=== PATIENT | female | born 1960 | race Caucasian/White ===

== ENCOUNTER 2023-03-24 14:14 | Outpatient (OUT) | payer OTHER, MEDICAID, SELFPAY ==
[2023-03-24 15:01] LABS: Basophils Absolute Auto 0.1 10^3/uL (0.0-0.1); Basophils Percent Auto 0.7 % (0.2-2.0); Eosinophils Absolute Auto 0.1 10^3/uL (0.0-0.7); Eosinophils Percent Auto 1.5 % (0.9-7.0); Hematocrit 38.9 % (36.0-48.0); Hemoglobin 12.6 g/dL (12.0-16.0); Immature Granulocytes Abs Auto 0.02 10^3/uL (0.00-0.03); Immature Granulocytes Pct Auto 0.3 % (0.0-0.5); Lymphocytes Absolute Auto 2.2 10^3/uL (1.2-3.8); Lymphocytes Percent Auto 28.8 % (20.5-60.0); Mean Corpuscular HGB Conc 32.4 g/dL (29.9-35.2); Mean Corpuscular Hemoglobin 31.5 pg (26.7-34.0); Mean Corpuscular Volume 97.3 fL (81.0-99.0); Mean Platelet Volume 10.7 fL (9.5-13.5); Monocytes Absolute Auto 0.5 10^3/uL (0.3-0.8); Monocytes Percent Auto 7.1 % (1.7-12.0); Neutrophils Absolute Auto 4.7 10^3/uL (1.4-6.5); Neutrophils Percent Auto 61.6 % (43.0-75.0); Platelet Count 176 10^3/uL (150-450); Red Cell Distribution Width 13.2 % (11.0-15.0); White Blood Count 7.6 10^3/uL (4.0-11.0)
[2023-03-24 15:25] LABS: Estimated Average Glucose 146 mg/dL; Glycohemoglobin A1C 6.7 % (4.5-6.2)
[2023-03-24 15:27] LABS: Alanine Aminotransferase 35 U/L (14-59); Albumin Level 3.9 g/dL (3.4-5.0); Alkaline Phosphatase 101 U/L (46-116); Anion Gap 13.9; Aspartate Amino Transferase 43 U/L (15-37); BUN Creatinine Ratio 23.4; Bilirubin Total 1.1 mg/dL (0.2-1.0); Calcium 9.4 mg/dL (8.5-10.1); Carbon Dioxide 27.4 mmol/L (21.0-32.0); Chloride 104 mmol/L (98-107); Chol HDL Ratio 2.2; Cholesterol 168 mg/dL (<=200); Estimated GFR (African America >60 (>=60); Estimated GFR (Non-African Ame >60 (>=60); Free T3 2.36 pg/mL (2.18-3.98); Globulin 3.8 g/dL; Glucose 131 mg/dL (74-106); HDL Cholesterol 76 mg/dL (40-60); Potassium 4.3 mmol/L (3.5-5.1); Sodium 141 mmol/L (136-145); Thyroid Stimulating Hormone 2.812 uIU/mL (0.358-3.740); Total Protein 7.7 g/dL (6.4-8.2); Triglycerides 88 mg/dL (<=150); VLDL CHOLESTEROL 17.6 mg/dL
[2023-03-25 12:12] LABS: Insulin 9.5 uIU/mL (2.6-24.9)
== END 2023-03-24 14:15 | disposition home or self-care (01) ==
LOC: LAB 14:16
PROVIDERS: PCP Family Medicine; Visit Provider Family Medicine
DX: E11.69 Type 2 diabetes mellitus with other specified complication (principal); E78.5 Hyperlipidemia, unspecified; G47.33 Obstructive sleep apnea (adult) (pediatric); Z12.12 Encounter for screening for malignant neoplasm of rectum; D64.9 Anemia, unspecified; E55.9 Vitamin D deficiency, unspecified; I11.0 Hypertensive heart disease with heart failure
CPT/HCPCS: 36415; 80053; 80061; 82306; 83036; 83525; 83540; 83880; 84436; 84443; 84481; 85025

== ENCOUNTER 2023-03-31 09:50 | Outpatient (OUT) | payer OTHER, MEDICAID, SELFPAY ==
--- NOTE | 2023-03-31 11:16 | CA_ITS ---
Patient Name: MEKA ALVES MR#: [id number] : 1960 Exam Date: 03/31/2023 Ordering Doctor: DR BRUNO AYALA . ECHOCARDIOGRAM REPORT PROCEDURE: CA ECHO DOPPLER COMPLETE INDICATIONS: Chest pain COMPARISON: None. DESCRIPTION: COMPLETE ECHOCARDIOGRAM Real-time transthoracic echocardiography with 2D, M-mode, spectral and color flow Doppler performed. QUALITY: Technical quality was limited. LEFT VENTRICLE: Moderate dilatation. Normal left ventricular wall thickness. LV EF: Global left ventricular systolic function is low normal limits; visually estimated ejection fraction is 50%. No obvious wall motion abnormalities. DIASTOLIC: Grade II diastolic dysfunction. ATRIAL SEPTUM: Inadequately seen. LEFT ATRIUM: Mild dilatation. RIGHT ATRIUM: Mild dilatation. RIGHT VENTRICLE: Mild dilatation. Right ventricular systolic function appears reduced. TRICUSPID VALVE: Normal mobility and thickness. Moderate regurgitation. Severe pulmonary hypertension. RVSP 66mmHg MITRAL VALVE: Normal mobility and thickness. No evidence of mitral valve stenosis. Moderate mitral annular calcification. Calcified subvalvular apparatus. Trivial mitral regurgitation. AORTIC VALVE: Normal trileaflet appearance. Moderately calcified aortic valve. Doppler velocity suggest no significant aortic valve stenosis. No aortic regurgitation. AORTIC ROOT: Normal diameter and appearance. PULMONIC VALVE: Normal thickness and mobility. No stenosis. Trivial regurgitation. PERICARDIUM: No evidence of pericardial effusion. IVC: Normal size with no collapse. CONCLUSION: 1. Global left ventricular systolic function is low normal limits; visually estimated ejection fraction is 50% 2. The left ventricle is moderately dilated 3. The right ventricle is mildly dilated with reduced systolic function 4. Biatrial enlargement 5. Grade 2, moderate diastolic dysfunction 6. Moderate tricuspid regurgitation 7. Severely elevated right ventricular systolic pressure; RVSP 66 mmHg Adult Echocardiography Procedure Report Left Ventricle LVEDD (3.7 - 5.6 cm): 5.76 cm LVESD (2.2 - 4.0 cm): 4.00 cm LVIVS thickness (0.6 - 1.2 cm): 0.90 cm LVPW thickness (0.5 - 1.0 cm): 0.79 cm e': 0.08 m/s E - e': 11.85 LVOT Max Gradient: 1.74 mm[Hg] LVOT Area (cm2): 0.66 m/s Peak Velocity (LVOT): 0.66 m/s Mean Velocity (LVOT): 0.50 m/s LVOT Diameter 2.00 cm Left Atrium LA Volume Index (2D A2C): 40.08 ml/m2 Left Atrium Systolic Dimension: 3.67 cm Mitral Valve MV E to A Ratio: 1.39, 1.19 Mitral Valve A-Wave Peak Velocity: 0.71 m/s Mitral Valve E-Wave Peak Velocity: 0.91 m/s Right Ventricle RV Internal Diastolic Dimension: 4.17 cm Aorta AO Root Diam: 2.96 cm Ascending Ao Diam: 2.35 cm Aortic Valve AoV Area (Peak Baron): 1.30 cm2, 1.30 cm2 AoV Area (VTI): 1.49 cm2, 1.40 cm2 Peak Velocity(Antegrade Flow): 1.59 m/s, 1.59 m/s Peak Gradient(Antegrade Flow): 10.12 mm[Hg], 10.12 mm[Hg] Mean Velocity(Antegrade Flow): 1.10 m/s, 1.07 m/s Mean Gradient(Antegrade Flow): 5.45 mm[Hg], 5.21 mm[Hg] Velocity Time Integral: 43.17 cm, 38.35 cm Tricuspid Valve Peak Velocity (Regurgitant Flow): 3.23 m/s, 2.47 m/s, 3.81 m/s Pulmonic Valve Mean Gradient: 2.25 mm[Hg], 2.20 mm[Hg], 2.19 mm[Hg] Mean Velocity: 0.71 m/s, 0.70 m/s, 0.71 m/s Peak Velocity: 0.95 m/s Peak Gradient: 4.11 mm[Hg], 3.48 mm[Hg], 3.22 mm[Hg] Right Atrium Right Atrium Systolic Pressure: 66.64 ml, 66.64 ml Dictated by: Armen Flaherty M.D. on 03/31/2023 at 12:55 Approved by: Armen Flaherty M.D. on 03/31/2023 at 13:03
[2023-03-31 14:14] LABS: Occult Blood Negative
== END 2023-03-31 09:51 | disposition home or self-care (01) ==
LOC: CARD 09:54
PROVIDERS: PCP Family Medicine; Visit Provider Family Medicine
DX: R07.9 Chest pain, unspecified (principal); E11.69 Type 2 diabetes mellitus with other specified complication; E78.5 Hyperlipidemia, unspecified; G47.33 Obstructive sleep apnea (adult) (pediatric); Z12.12 Encounter for screening for malignant neoplasm of rectum; D64.9 Anemia, unspecified; E55.9 Vitamin D deficiency, unspecified; I50.30 Unspecified diastolic (congestive) heart failure; I11.0 Hypertensive heart disease with heart failure
CPT/HCPCS: 93306; G0328

== ENCOUNTER 2023-04-14 09:54 | Outpatient (OUT) | payer OTHER, MEDICAID, SELFPAY ==
--- NOTE | 2023-04-14 09:56 | VEIN_ITS ---
Patient Name: MEKA ALVES MR#: [id number] : 1960 Exam Date: 04/14/2023 Ordering Doctor: DR JOÃO JOSHUA M.D. RADIOLOGY REPORT PROCEDURE: VC EXT VENOUS REFLUX LYLA LMTD COMPARISON: None. INDICATIONS: I83.813 Painful varicose veins of bilat lower extremities TECHNIQUE: Duplex imaging of the lower extremity to assess the deep and superficial venous system for the presence of deep or superficial venous incompetence and to document the location and severity of disease. The study includes evaluation of the great saphenous vein (GSV), anterior accessory saphenous vein (AASV) and small saphenous vein (SSV). Patient scanned in reverse Trendelenburg and standing. FINDINGS: RIGHT LOWER EXTREMITY: Saphenofemoral Junction Reflux: Yes 10.8mm 2.8 sec GSV: Diam (mm) Reflux/ Time (sec) Proximal Thigh 10.0 Yes 2.7 Mid Thigh 7.9 Yes 1.7 Distal Thigh 6.8 Yes 2.3 Prox Calf 5.9 Yes 1.1 Mid Calf Saphenopopliteal Junction Reflux: 5.6mm Yes 1.8 SSV: Proximal Calf 5.7 Yes 2.4 Mid Calf N/A AASV: Not present Proximal Thigh Mid Thigh Distal Thigh Thrombi: No acute or chronic thrombus Compressibility: Normal Flow: Normal Preforator: Dist/med calf 4.5mm with 0s reflux. Tech Note: Incompetent GSV and SSV. Patent varicose vein mid/med calf 5.0mm with 1.1s reflux. Patent varicose vein medial knee 4.2mm with 0.6s reflux. Patent varicose vein mid/med thigh 4.5mm with 1.0s reflux. LEFT LOWER EXTREMITY: Saphenofemoral Junction Reflux: Yes 8.8 mm 3.1 sec GSV: Diam (mm) Reflux/Time (sec) Proximal Thigh 7.0 Yes 2.0 Mid Thigh 6.7 Yes 1.7 Distal Thigh 3.4 Yes 0.5 Prox Calf 5.4 Yes 0.9 Mid Calf 3.3 Saphenopopliteal Junction Relux: 8.0 mm Yes 1.6 SSV: Proximal Calf 7.0 Yes 1.8 Mid Calf N/A AASV: Proximal Thigh Mid Thigh Distal Thigh Thrombi: No acute or chronic thrombus visualized Compressibility: Normal Flow: Normal Director Of Curriculum And Instruction: Tech Note: Patent varicose vein prox/med calf 5.3mm with 1.0s reflux. Patent varicose vein mid/med thigh 6.2mm with 1.6s reflux. Patent varicose vein mid/med calf 5.6mm with 1.8s reflux. CONCLUSION: 1. 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 2. Consultation for endovenous ablation should be considered. Dictated by: Jose Saba M.D. on 04/15/2023 at 14:08 Approved by: Jose Saba M.D. on 04/15/2023 at 14:11
== END 2023-04-14 09:55 | disposition home or self-care (01) ==
PROVIDERS: PCP Family Medicine; Visit Provider Radiology Diagnostic Radiology
DX: R60.0 Localized edema (principal); I83.813 Varicose veins of bilateral lower extremities with pain
CPT/HCPCS: 93970

== ENCOUNTER 2023-04-23 09:58 | Outpatient (RCR) | payer OTHER, MEDICAID, SELFPAY | END 2023-04-24 15:18 | disposition home or self-care (01) | LOC: OT 09:58 | PROVIDERS: PCP Family Medicine; Visit Provider Family Medicine | DX: I89.0 Lymphedema, not elsewhere classified (principal); E11.69 Type 2 diabetes mellitus with other specified complication | CPT/HCPCS: 97166; 97535 ==

== ENCOUNTER 2023-09-03 10:53 | Outpatient (OUT) | payer OTHER, MEDICAID, SELFPAY ==
[2023-09-03 11:27] LABS: Basophils Absolute Auto 0.1 10^3/uL (0.0-0.1); Basophils Percent Auto 0.6 % (0.2-2.0); Eosinophils Absolute Auto 0.1 10^3/uL (0.0-0.7); Eosinophils Percent Auto 1.4 % (0.9-7.0); Hematocrit 38.4 % (36.0-48.0); Hemoglobin 12.6 g/dL (12.0-16.0); Immature Granulocytes Abs Auto 0.03 10^3/uL (0.00-0.03); Immature Granulocytes Pct Auto 0.4 % (0.0-0.5); Lymphocytes Absolute Auto 2.3 10^3/uL (1.2-3.8); Mean Corpuscular HGB Conc 32.8 g/dL (29.9-35.2); Mean Corpuscular Hemoglobin 30.8 pg (26.7-34.0); Mean Corpuscular Volume 93.9 fL (81.0-99.0); Mean Platelet Volume 10.1 fL (9.5-13.5); Monocytes Absolute Auto 0.7 10^3/uL (0.3-0.8); Monocytes Percent Auto 8.5 % (1.7-12.0); Neutrophils Absolute Auto 5.3 10^3/uL (1.4-6.5); Neutrophils Percent Auto 62.1 % (43.0-75.0); Platelet Count 171 10^3/uL (150-450); Red Blood Count 4.09 10^6/uL (4.20-5.40); Red Cell Distribution Width 13.1 % (11.0-15.0); White Blood Count 8.6 10^3/uL (4.0-11.0)
[2023-09-03 12:08] LABS: Alanine Aminotransferase 30 U/L (14-59); Albumin Globulin Ratio 0.9; Albumin Level 3.4 g/dL (3.4-5.0); Alkaline Phosphatase 119 U/L (46-116); Anion Gap 16.3; Aspartate Amino Transferase 24 U/L (15-37); BUN Creatinine Ratio 17.2; Bilirubin Total 0.8 mg/dL (0.2-1.0); Calcium 9.4 mg/dL (8.5-10.1); Carbon Dioxide 26.3 mmol/L (21.0-32.0); Chloride 105 mmol/L (98-107); Chol HDL Ratio 2.2; Cholesterol 163 mg/dL (<=200); Estimated GFR (African America >60 (>=60); Estimated GFR (Non-African Ame 56 (>=60); Free T3 2.72 pg/mL (2.18-3.98); Globulin 3.8 g/dL; Glucose 163 mg/dL (74-106); HDL Cholesterol 74 mg/dL (40-60); Potassium 4.6 mmol/L (3.5-5.1); Sodium 143 mmol/L (136-145); Thyroid Stimulating Hormone 3.946 uIU/mL (0.358-3.740); Total Protein 7.2 g/dL (6.4-8.2); Triglycerides 87 mg/dL (<=150); VLDL CHOLESTEROL 17.4 mg/dL
[2023-09-03 12:15] LABS: Estimated Average Glucose 154 mg/dL
== END 2023-09-03 10:54 | disposition home or self-care (01) ==
LOC: LAB 10:56
PROVIDERS: PCP Family Medicine; Visit Provider Family Medicine
DX: E78.00 Pure hypercholesterolemia, unspecified (principal); E78.5 Hyperlipidemia, unspecified; R73.09 Other abnormal glucose; D64.9 Anemia, unspecified; E55.9 Vitamin D deficiency, unspecified
CPT/HCPCS: 36415; 80053; 80061; 82306; 83036; 83540; 84436; 84443; 84481; 85025

== ENCOUNTER 2023-12-03 11:28 | Outpatient (OUT) | payer OTHER, MEDICAID, SELFPAY ==
--- OUTSIDE RECORDS SUMMARY | 2023-12-03 11:47 | XMS_ITS ---
Patient Summarization (C-CDA 2.1 CCD) Created on: December 03, 2023 MEKA ALVES : 1960 Sex: Female Author Organization Sample organization Care Team Providers Care Livestock Rancher Name Role Phone BRINK, DANDY Unavailable Unavailable BRINK, DANDY Unavailable Unavailable HOY, BRUNO Unavailable Unavailable HOY, BRUNO Unavailable Unavailable BRINK, DANDY Unavailable Unavailable BRINK, DANDY Unavailable Unavailable HOY, BRUNO Unavailable Unavailable HOY, BRUNO Unavailable Unavailable Catia PROVIDERBruno Attending Aure Ayala PROVIDER, Bruno Admitting UnavailBruno Salvador Primary Care Physician [phone] CATIA Sims, DR CARR Attending Unavailable HOY ., DR CARR Consulting Unavailable CATIA ., DR CARR Primary Care Unavailable CATIA ., DR CARR Admitting Unavailable Allergies Allergy Classification Reported Allergen(s) Allergy Type Date of Onset Reaction(s) Facility (2 sources) Adhesive agent; Translations: [ADHESIVES] Propensity to adverse reactions (disorder) 6 AOF [facility] Repository (3 sources) Egg; Translations: [EGGS] Food allergy (disorder) 6 Anaphylaxis (disorder), Weal (disorder) [facility] Repository (2 sources) Sulfonamides (Antibiotic) Drug allergy (disorder) 6 AOF [facility] Repository (1 source) Sulfonamides (Antibiotic) Drug allergy (disorder) 6 AOF [facility] Repository (2 sources) Sulfonamides (Antibiotic); Translations: [sulfa drugs] Propensity to adverse reactions (disorder) [facility] Repository (1 source) Adhesive agent Drug allergy (disorder) [facility] Repository (1 source) egg extract Drug Allergy 6 [facility] Repository Encounters Encounter Date Encounter Type Care Provider Facility Start: 10-14-[address] BRUNO AYALA . Facili ty:[facility]1 Start: 07-01-2022 End: 07-02-2022 ambulatory Bruno Ayala PROVIDER [place]: 07-01-2022 End: 07-01-2022 Patient encounter procedure Bruno Ayala [facility] Start: 12-06-2017 End: 12-07-2017 Patient encounter DANDYMAHNAZ BRINK Facility:[facility] Start: 11-30-2017 End: 12-01-2017 Patient encounter DANDY BRINK Facility:[facility] Medical Equipment Procedure Code Equipment Code Equipment Origin al Text Equipment Identifier Dates 30 Gauge Lancet, See Instructions, 100 EA, 11, Lancets 30 gauge for use with One Touch Verio Meter Test up to TID, [facility]/pharmacy #[id number], Supply, 158, cm, 07/30/20 15:32:00 EDT, Height/Length Dosing, 136.6, kg, 07/30/20 15:32:00 EDT, Weight Dosing Start: 07-31-2020 1 madhav, Topical, TID, 30 gram, Refill(s) 0 Start: 11-24-2015 1 madhav, Topical, BID, 30 gram, Refill(s) 0 Start: 11-24-2015 One Touch Verio reflect test Strips, See Instructions, 100 EA, 12, One Touch Verio reflect test Strips DX E.11.9 Test blood sugar up to TID, [facility], Supply, 158, cm, 11/04/20 13:45:00 EDT, Height/Length Dosing, 136.1, kg,... Start: 08-18-2021 Immunizations Immunization Date Immunization Notes Care Provider Markie greer 08-21-2020 tetanus toxoid, redu ita diphtheria toxoid, and acellular pertussis vaccine, adsorbed Bruno Ayala [facility] Primary [facility] Medications Current Medications Medication Drug Class(es) Dates Sig (Normalized) Sig (Original) aspirin 81 mg delayed release oral tablet (1 source) Platelet Aggregation Inhibitor, Nonsteroidal Anti-inflammatory Drug Start: 07-30-2020 take 1 tablet by mouth once daily aspirin 81 mg Oral EC Tab 81 mg = 1 tab(s), Oral, Daily, # 90 tab(s), Refills(s) 0 Start Date: 07/30/20 Status: Ordered carvedilol 12.5 mg oral tablet (1 source) alpha-Adrenergic Asha, beta-Adrenergic Asha Start: 09-12-2021 take 1 tablet by mouth twice daily Coreg 12.5 mg Tab 12.5 mg = 1 tab(s), Oral, BID, # 180 tab(s), Refills(s) 1, Pharmacy: [facility], 158, cm, 11/04/20 13:45:00 EDT, Height/Length Dosing, 136.1, kg, 11/04/20 13:45:00 EDT, Weight Dosing Start Date: 09/12/21 Status: Ordered cpap supplies (1 source) Start: 12-27-2020 cpap supplies cpap supplies, See Instructions, 1 EA, 5, cpap supplies, Supply Start Date: 12/27/20 Status: Ordered fenofibrate 145 mg oral tablet (1 source) Peroxisome Proliferator Receptor alpha Agonist Start: 08-15-2020 take 1 tablet by mouth once daily fenofibrate 145 mg Tab 145 mg = 1 tab(s), Oral, Daily, # 90 tab(s), Refills(s) 1, Pharmacy: [facility], 158, cm, 07/30/20 15:32:00 EDT, Height/Length Dosing, 136.6, kg, 07/30/20 15:32:00 EDT, Weight Dosing Start Date: 08/15/20 Status: Ordered furosemide 20 mg oral tablet (1 source) Loop Diuretic Start: 10-28-2012 take 1 tablet by mouth once daily Lasix 20 mg Tab 20 mg = 1 tab(s), Oral, Daily, Refills(s) 0 Start Date: 10/28/12 Status: Ordered glimepiride 4 mg oral tablet (1 source) Sulfonylurea Start: 03-14-2021 take 2 mg by mouth once daily glimepiride 4 mg Tab 2 mg = 0.5 tab(s), Oral, Daily, # 45 tab(s), Refills(s) 1, Pharmacy: [facility], 158, cm, 11/04/20 13:45:00 EDT, Height/Length Dosing, 136.1, kg, 11/04/20 13:45:00 EDT, Weight Dosing Start Date: 03/14/21 Status: Ordered metFORMIN hydrochloride 1000 mg oral tablet (1 source) Biguanide Start: 09-12-2021 take 1 tablet by mouth twice daily metformin 1000 mg oral tablet 1,000 mg = 1 tab(s), Oral, BID, # 180 tab(s), Refills(s) 1, Pharmacy: [facility], 158, cm, 11/04/20 13:45:00 EDT, Height/Length Dosing, 136.1, kg, 11/04/20 13:45:00 EDT, Weight Dosing Start Date: 09/12/21 Status: Ordered [facility] [place] (1 source) Start: 07-30-2020 Misc DME Prescription Start Date: 07/30/20 Status: Ordered Mometasone (1 source) Corticosteroid Start: 11-24-2015 mometasone topical 0.1% cream Refill(s) 0 Start Date: 11/24/15 Status: Ordered One Touch Meter Verio Reflect Meter (1 source) Start: 07-31-2020 One Touch Meter Verio Reflect Meter One Touch Meter Verio Reflect Meter, See Instructions, 1 EA, 0, One touch Reflect meter DX E11.9 Test blood sugar up to TID, [facility]/pharmacy #[id number], Supply, 158, cm, 07/30/20 15:32:00 EDT, Height/Length Dosing, 136.6, kg, 07/30/20 15:32:00 EDT, Weight... Start Date: 07/31/20 Status: Ordered simvastatin 20 mg oral tablet (1 source) HMG-CoA Reductase Inhibitor Start: 07-30-2020 take 1 tablet by mouth once daily at bedtime simvastatin 20 mg Tab 20 mg = 1 tab(s), Oral, Once a day (at bedtime), # 30 tab(s), Refills(s) 0 Start Date: 07/30/20 Status: Ordered SITagliptin 100 mg oral tablet (1 source) Dipeptidyl Peptidase 4 Inhibitor Start: 07-30-2020 take 1 tablet by mouth once daily Januvia 100 mg Tab 100 mg = 1 tab(s), Oral, Daily, # 30 tab(s), Refills(s) 0 Start Date: 07/30/20 Status: Ordered Symbicort 80 mcg-4.5 mcg/inh Aerosol (1 source) Start: 10-28-2012 Symbicort 80 mcg-4.5 mcg/inh Aerosol Refill(s) 0 Start Date: 10/28/12 Status: Ordered Vitamin D 1000 intl units Tab (1 source) Start: 07-30-2020 Vitamin D 1000 intl units Tab 1,000 International_Uni t = 1 tab(s), Oral, Daily, 5000 units, # 30 tab(s), Refills(s) 0 Start Date: 07/30/20 Status: Ordered Voltaren 50mg Tab-DR (1 source) Start: 07-30-2020 Voltaren 50mg Tab-DR Oral, Refills(s) 0 Start Date: 07/30/20 Status: Ordered warfarin sodium 5 mg oral tablet (1 source) Vitamin K Antagonist Start: 09-12-2021 take 1 tablet by mouth once daily Jantoven 5 mg oral tablet 5 mg = 1 tab(s), Oral, Daily, # 90 tab(s), Refills(s) 1, Pharmacy: [facility], 158, cm, 11/04/20 13:45:00 EDT, Height/Length Dosing, 136.1, kg, 11/04/20 13:45:00 EDT, Weight Dosing Start Date: 09/12/21 Status: Ordered Completed/Discontinued Medications Medication Drug Class(es) Dates Sig (Normalized) Sig (Original) Diabetic shoes (1 source) Start: 07-30-2020 Diabetic shoes Diabetic shoes, See Instructions, 2 EA, 0, Diabetic Shoes DX E11.9, Supply Start Date: 07/30/20 Status: Ordered Payers Date Payer Category Payer Medicaid [id number] 2022 Medicare [id number] 2020 Unknown [id number] 1960 Unknown [id number] 1960 Unknown [id number] Medicare [id number] Problems Problem Classification Problem Date Documented Da te Episodic/Chronic Abdominal hernia (1 source) Irreducible umbilical hernia 07-28-2013 Episodic Asthma (1 source) Mild persistent asthma 11-04-2020 Chronic Cardiac dysrhythmias (1 source) Bradycardia, unspecified; Translations: [BRADYCARDIA, UNSPECIFIED] Onset: 8 Chronic Chronic obstructive pulmonary disease and bronchiectasis (1 source) Chronic obstructive pulmonary disease, unspecified; Translations: [CHRONIC OBSTRUCTIVE PULMONARY DISEASE, UNSPECIFIED] Onset: 8 Chronic Coronary atherosclerosis and other heart disease (4 sources) Atherosclerotic heart disease of [place] coronary artery without angina pectoris; Translations: [ATHSCL HEART DISEASE OF [place] CORONARY ARTERY W/O ANG PCTRS] Onset: 8 Chronic Diabetes mellitus with complications (1 source) Hyperglycemia due to type 2 diabetes mellitus 07-30-2020 Chronic Diabetes mellitus without complication (1 source) Type 2 diabetes mellitus without complications; Translations: [TYPE 2 DIABETES MELLITUS WITHOUT COMPLICATIONS] Onset: 8 Chronic Essential hypertension (1 source) Hypertensive disorder 11-04-2020 Chronic Headache; including migraine (1 source) Headache 07-30-2020 Episodic Nonspecific chest pain (2 sources) Chest pain, unspecified; Translations: [Chest pain] Onset: 8 07-30-2020 Episodic Other aftercare (1 source) intermediate teacher (current) use of anticoagulants; Translations: [MANAGER RESORT (CURRENT) USE OF ANTICOAGULANTS] Onset: 8 Episodic Other circulatory disease (1 source) 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 Chronic Other liver diseases (1 source) Aspartate aminotransferase serum level raised 11-04-2020 Episodic Other liver diseases (1 source) Elevated liver enzymes level 11-04-2020 Episodic Other lower respiratory disease (1 source) Pulmonary edema 07-30-2020 Chronic Other lower respiratory disease (1 source) H/O: respiratory disease 07-30-2020 Episodic Other nutritional; endocrine; and metabolic disorders (1 source) Obesity, unspecified; Translations: [OBESITY, UNSPECIFIED] Onset: 8 Chronic Other nutritional; endocrine; and metabolic disorders (1 source) Body mass index 40+ - severely obese 07-30-2020 Chronic Other nutritional; endocrine; and metabolic disorders (1 source) Morbid obesity 07-30-2020 Chronic Phlebitis; thrombophlebitis and thromboembolism (2 sources) Personal history of other venous thrombosis and embolism; Translations: [Deep venous thrombosis] Onset: 8 12-08-2011 Episodic Pneumonia (except that caused by tuberculosis or sexually transmitted disease) (1 source) Pneumonia 07-28-2013 Episodic Pulmonary heart disease (1 source) Pulmonary embolism 07-28-2013 Episodic Residual codes; unclassified (1 source) Edema of lower extremity 07-30-2020 Episodic Respiratory failure; insufficiency; arrest (1 source) Dependence on supplemental oxygen; Translations: [DEPENDENCE ON SUPPLEMENTAL OXYGEN] Onset: 8 Chronic Unclassified (2 sources) Body mass index (BMI) 50-59.9 , adult; Translations: [Obstructive sleep apnea (adult) (pediatric)] Onset: 8 Chronic Unclassified (4 sources) Abnormal result of other cardiovascular function study; Translations: [ABNORMAL RESULT OF OTHER CARDIOVASCULAR FUNCTION STUDY] Onset: 8 Episodic Unclassified (1 source) Procedure and treatment not carried out for other reasons; Translations: [PROCEDURE AND TREATMENT NOT CARRIED OUT FOR OTHER REASONS] Onset: 8 Episodic Unclassified (1 source) intermediate (current) use of oral hypoglycemic drugs; Translations: [MANAGER RESORT (CURRENT) USE OF ORAL HYPOGLYCEMIC DRUGS] Onset: 8 Unclassified (2 sources) Unknown / UNK(Unknown) Onset: 8 Unclassified (2 sources) Patient encounter status 07-30-2020 Procedures Date Procedure Procedure Detail Performing Clinician Start: 01-16-2012 left needle localize d breast biopsy, x2 Bruno FK Biotecnologiay Start: 05-09-2010 [employer] 1 Bruno Ho y Comment on above: permanent vena cava filter Gilbert filterbarry evice (physical object) Bruno Hoy Hernia of abdominal cavity (disorder) Bruno Hoy Hysterectomy Bruno Hoy Ligation of fallopian tube D ouglas Hoy Tonsillectomy Bruno Hoy Results Test Name Value Interpretation Reference Range Facility CBC AUTO DIFFon 10-14-2022 BASO # 0.0 103/ul Normal 0.0-0.1 [facility] Comment on above: Performed By: #### CBC #### [facility] [address] [address] [address] Grace Vences Basophils/100 WBC (Bld) 0.6 % Normal 0.2-2.0 [facility] Comment on above: Performed By: #### CBC #### [facility] [address] [address] [address] Grace Vences EO # 0.1 103/ul Normal 0.0-0.7 [facility] Comment on above: Performed By: #### CBC #### [facility] [address] [address] [address] Grace Vences Eosinophils/100 WBC (Bld) 1.1 % Normal 0.9-7.0 [facility] Comment on above: Performed By: #### CBC #### [facility] [address] [place] [address] Dr. Grace Vences Erythrocyte distribution width (RBC) [Ratio] 13.1 % Normal 11.0-15.0 [facility] Comment on above: Performed By: #### CBC #### [facility] [address] [address] [address] Grace Vences Hematocrit (Bld) [Volume fraction] 40.7 % Normal 36.0-48.0 [facility] Comment on above: Performed By: #### CBC #### [facility] [address] [place] [address] Dr. Grace Vences Hemoglobin (Bld) [Mass/Vol] 13.5 g/dL Normal 12.0-16.0 [facility] Comment on above: Performed By: #### CBC #### [facility] [address] [address] [address] Grace Vences IG # 0.03 10e3/ul Normal 0.00-0.03 [facility] Comment on above: Performed By: #### CBC #### [facility] [address] [address] [address] Grace Vences IG % 0.4 % Normal 0.0-0.5 [facility] Comment on above: Performed By: #### CBC #### [facility] [address] [place] [address] Dr. Grace Vences LYMPH # 2.2 103/ul Normal 1.2-3.8 [facility] Comment on above: Performed By: #### CBC #### [facility] [address] [place] [address] Dr. Grace Vences Lymphocytes/100 WBC (Bld) 31.0 % Normal 20.5-60.0 [facility] Comment on above: Performed By: #### CBC #### [facility] [address] [place] [address] Dr. Grace eVnces MANUAL DIFF REQ NO Normal [facility] Comment on above: Performed By: #### CBC #### [facility] [address] [place] [address] Dr. Grace Vences MCH (RBC) [Entitic mass] 31.6 pg Normal 26.7-34.0 [facility] Comment on above: Performed By: #### CBC #### [facility] [address] [place] [address] Dr. Grace Vences MCHC (RBC) [Mass/Vol] 33.2 g/dL Normal 29.9-35.2 [facility] Comment on above: Performed By: #### CBC #### [facility] [address] [place] [address] Dr. Grace Vences MCV (RBC) [Entitic vol] 95.3 fL Normal 81.0-99.0 [facility] Comment on above: Performed By: #### CBC #### [facility] [address] [place] [address] Dr. Grace Vences MONO # 0.4 103/ul Normal 0.3-0.8 [facility] Comment on above: Performed By: #### CBC #### [facility] [address] [place] [address] Dr. Grace Vences Monocytes/100 WBC (Bld) 6.1 % Normal 1.7-12.0 [facility] Comment on above: Performed By: #### CBC #### [facility] [address] [address] [address] Grace Vences NEUT # 4.3 103/ul Normal 1.4-6.5 [facility] Comment on above: Performed By: #### CBC #### [facility] [address] [place] [address] Dr. Grace Vences Neutrophils/100 WBC (Bld) 60.8 % Normal 43.0-75.0 [facility] Comment on above: Performed By: #### CBC #### [facility] [address] [place] [address] Dr. Grace Vences Platelet mean volume (Bld) [Entitic vol] 10.5 fL Normal 9.5-13.5 [facility] Comment on above: Performed By: #### CBC #### [facility] [address] [place] [address] Dr. Grace Vences PLT 186 103/ul Normal 150-450 [facility] Comment on above: Performed By: #### CBC #### [facility] [address] [place] [address] Dr. Grace Vences RBC 4.27 106/ul Normal 4.20-5.40 [facility] Comment on above: Performed By: #### CBC #### [facility] [address] [place] [address] Dr. Grace Vences WBC 7.1 103/ul Normal 4.0-11.0 [facility] Comment on above: Performed By: #### CBC #### [facility] [address] [place] [address] Dr. Grace Vences FREE THYROXINE INDEX T7on FTI 2.75 Normal 1.30-4.50 [facility] Comment on above: Performed By: #### TSH, LIPID, CMP, T7 # ### [facility] [address] [place] [address] Dr. Grace Vences T3U 34.0 % Normal 30.0-39.0 [facility] Comment on above: Performed By: #### TSH, LIPID, CMP, T7 # ### [facility] [address] [place] [address] Dr. Grace Vences T4 [Mass/Vol] 8.10 ug/dL Normal 4.80-13.90 [facility] Comment on above: Performed By: #### TSH, LIPID, CMP, T7 # ### [facility] [address] [address] [address] Grace Vences GLYCOHEMOGLOBIN A1Con 2022 ADA RECOMMENDATION SEE BELOW Normal [facility] Comment on above: Result Comment: ADA RECOMMENDED LIMIT 4. 0 - 6.0 ADA THERAPEUTIC TARGET < 7.0 ACTION SUGGESTED > 7.0 Performed By: #### A 1C #### [facility] [address] [address] [address] Grace Vences Glucose [Mass/Vol] 301 mg/dL Normal [facility] Comment on above: Performed By: #### A1C #### [facility] [address] [place] [address] Dr. Grace Vences HbA1c (Bld) [Mass fraction] 12.1 % Critically high 4.5-6.2 [facility] Comment on above: Performed By: #### A1C #### [facility] [address] [place] [address] Dr. Grace Vences LIPID PROFILEon 10-14-2022 CHOL-HDL RATIO NORM SEE BELOW Normal [facility] Comment on above: Result Comment: 3.3 - 4.4 LOW RISK 4.4 - 7.1 AVERAGE RISK 7.1 - 11.0 MODERATE RISK >11.0 HIGH RISK Performed By: #### T SH, LIPID, CMP, T7 #### [facility] [address] [address] [address] Grace Vences Cholesterol [Mass/Vol] 149 mg/dL Normal <=200 [facility] Comment on above: Performed By: #### TSH, LIPID, CMP, T7 # ### [facility] [address] [address] [address] Grace Vences Cholesterol in HDL [Mass/Vol] 63 mg/dL Critically high 40-60 [facility] Comment on above: Performed By: #### TSH, LIPID, CMP, T7 # ### [facility] [address] [address] [address] Grace Vences Cholesterol in LDL [Mass/Vol] 59.6 mg/dL Normal [facility] Comment on above: Performed By: #### TSH, LIPID, CMP, T7 # ### [facility] [address] [address] [address] Grace Vences Cholesterol.tota l/Cholesterol in HDL [Mass ratio] 2.4 {ratio} Normal [facility] Comment on above: Performed By: #### TSH, LIPID, CMP, T7 # ### [facility] [address] [address] [address] Grace Vences HDL NORMAL > or = 60 mg/dl - LO W CARDIOVASCULAR RISK <40 mg/dl - HIGH CARDIOVASCULAR RISK Normal [facility] Comment on above: Performed By: #### TSH, LIPID, CMP, T7 # ### [facility] [address] [address] [address] Grace Vences LDL CALC NORMAL SEE BELOW Normal [facility] Comment on above: Result Comment: <100 mg/dl OPTIMAL 100 - 129 mg/dl NEAR OR ABOVE OPTIMAL 130 - 159 mg/dl BORDERLINE HIGH 160 - 189 mg/dl HIGH >190 mg/dl VERY HIGH Performed By: #### T SH, LIPID, CMP, T7 #### [facility] [address] [address] [address] Grace Vences Triglyceride [Mass/Vol] 132 mg/dL Normal <=150 [facility] Comment on above: Performed By: #### TSH, LIPID, CMP, T7 # ### [facility] [address] [address] [address] Grace Vences VLDL CALC 26.4 mg/dL Normal [facility] Comment on above: Performed By: #### TSH, LIPID, CMP, T7 # ### [facility] [address] [address] [address] Grace Vences PROF 14(COMP METB)on 023 Albumin [Mass/Vol] 3.4 g/dL Normal 3.4-5.0 [facility] Comment on above: Performed By: #### TSH, LIPID, CMP, T7 # ### [facility] [address] [place] [address] Dr. Grace Vences Albumin/Globulin [Mass ratio] 0.9 {ratio} Normal [facility] Comment on above: Performed By: #### TSH, LIPID, CMP, T7 # ### [facility] [address] [address] [address] Grace Vences ALP [Catalytic activity/Vol] 109 U/L Normal 46-116 [facility] Comment on above: Performed By: #### TSH, LIPID, CMP, T7 # ### [facility] [address] [place] [address] Dr. Grace Vences ALT [Catalytic activity/Vol] 64 U/L Critically high 14-59 [facility] Comment on above: Performed By: #### TSH, LIPID, CMP, T7 # ### [facility] [address] [place] [address] Dr. Grace Vences Anion gap [Moles/Vol] 14.8 mmol/L Normal [facility] Comment on above: Performed By: #### TSH, LIPID, CMP, T7 # ### [facility] [address] [place] [address] Dr. Grace Vences AST [Catalytic activity/Vol] 58 U/L Critically high 15-37 [facility] Comment on above: Performed By: #### TSH, LIPID, CMP, T7 # ### [facility] [address] [place] [address] Dr. Grace Vences Bilirubin [Mass/Vol] 1.0 mg/dL Normal 0.2-1.0 [facility] Comment on above: Performed By: #### TSH, LIPID, CMP, T7 # ### [facility] [address] [place] [address] Dr. Grace Vences Calcium [Mass/Vol] 9.2 mg/dL Normal 8.5-10.1 [facility] Comment on above: Performed By: #### TSH, LIPID, CMP, T7 # ### [facility] [address] [place] [address] Dr. Grace Vences Chloride [Moles/Vol] 102 mmol/L Normal 98-107 [facility] Comment on above: Performed By: #### TSH, LIPID, CMP, T7 # ### [facility] [address] [address] [address] Grace Vences CO2 [Moles/Vol] 27.4 mmol/L Normal 21.0-32.0 [facility] Comment on above: Performed By: #### TSH, LIPID, CMP, T7 # ### [facility] [address] [address] [address] Grace Vences Creatinine [Mass/Vol] 0.86 mg/dL Normal 0.55-1.02 [facility] Comment on above: Performed By: #### TSH, LIPID, CMP, T7 # ### [facility] [address] [address] [address] Grace Vences EGFR-AF [place]UR[place] >60 Normal >=60 [facility] Comment on above: Performed By: #### TSH, LIPID, CMP, T7 # ### [facility] [address] [address] [address] Grace Vences EGFR-NON AF [place] >60 Normal >=60 [facility] Comment on above: Performed By: #### TSH, LIPID, CMP, T7 # ### [facility] [address] [address] [address] Grace Vences Globulin (S) [Mass/Vol] 3.7 g/dL Normal [facility] Comment on above: Performed By: #### TSH, LIPID, CMP, T7 # ### [facility] [address] [address] [address] Grace Vences Glucose [Mass/Vol] 321 mg/dL Critically high 74-106 [facility] Comment on above: Performed By: #### TSH, LIPID, CMP, T7 # ### [facility] [address] [address] [address] Grace Vences Potassium [Moles/Vol] 4.2 mmol/L Normal 3.5-5.1 [facility] Comment on above: Performed By: #### TSH, LIPID, CMP, T7 # ### [facility] [address] [address] [address] Grace Vences Protein [Mass/Vol] 7.1 g/dL Normal 6.4-8.2 [facility] Comment on above: Performed By: #### TSH, LIPID, CMP, T7 # ### [facility] [address] [address] [address] Grace Vences Sodium [Moles/Vol] 140 mmol/L Normal 136-145 [facility] Comment on above: Performed By: #### TSH, LIPID, CMP, T7 # ### [facility] [address] [address] [address] Grace Vences Urea nitrogen [Mass/Vol] 9.0 mg/dL Normal 7.0-18.0 [facility] Comment on above: Performed By: #### TSH, LIPID, CMP, T7 # ### [facility] [address] [address] [address] Grace Vences Urea nitrogen/Creatin ine [Mass ratio] 10.5 mg/mg Normal [facility] Comment on above: Performed By: #### TSH, LIPID, CMP, T7 # ### [facility] [address] [place] [address] Dr. Grace Vences TSHon 10-14-2022 TSH 1.756 uIU/mL Normal 0.358-3.74 0 [facility] Comment on above: Performed By: #### TSH, LIPID, CMP, T7 # ### [facility] [address] [place] [address] Dr. Grace Vences Consent for Treatmenton 06-17 Consent for Treatment [id number]:127 Normal [facility] Physician Orderon 07-01-2022 Physician Order [id number]:127 Normal [facility] Retail - Clinical Noteon Retail - Clinical Note [id number]:127 Normal [facility] Retail - Clinical Noteon Retail - Clinical Note [id number]:127 Normal [facility] Provider Note - ED v2on Provider Note - ED v2 Provider Note - ED v2: Chart Review: HISTORY OF PRESENTING ILLNESS MEKA is a 59 year old Female and was seen by me at 21-Aug-2020 14:02 for a chief complaint of wound puncture. Other complaints include: left index finger puncture wound/abrasion from fishing hook x today, not actively bleeding, no foreign object retained, cleansed by patient facilities engineer; pt unsure of last tetanus immunization. Triage Information: Most recent Vital Sign Value Date PAST MEDICAL HISTORY ATTESTATION: I have reviewed and confirmed nurse's/medic's notes for patient's medications, allergies, and medical, surgical, family and social history ALLERGIES/INTOLERANCES: Allergy Allergen: sulfa drugs Type: Drug Category Reaction: Unknown Intolerance Allergen: Eggs Type: Food Reaction: Diarrhea HEALTH HISTORY: No documented data. OUTPATIENT MEDICATIONS: Home Medications Review Status for Reconciliation: Complete Med Status: Patient Currently Takes Medications Drug Name: aspirin 81 mg oral tablet Instructions: 1 tab(s) orally once a day Drug Name: fenofibrate 145 mg oral tablet Instructions: 1 tab(s) orally once a day Drug Name: Vitamin D3 2000 intl units oral capsule Instructions: 1 cap(s) orally once a day Drug Name: furosemide 20 mg oral tablet Instructions: 1 tab(s) orally once a day Drug Name: warfarin 5 mg oral tablet Instructions: 1 tab(s) orally once a day Drug Name: Jardiance 10 mg oral tablet Instructions: 1 tab(s) orally once a day (in the morning) Drug Name: carvedilol 12.5 mg oral tablet Instructions: 1 tab(s) orally 2 times a day Drug Name: metFORMIN 1000 mg oral tablet Instructions: 1 tab(s) orally 2 times a day Drug Name: Symbicort 80 mcg-4.5 mcg/inh inhalation aerosol Instructions: 2 puff(s) inhaled 2 times a day Drug Name: glimepiride Instructions: 0.5 tab(s) orally once a day Drug Name: Januvia 100 mg oral tablet Instructions: 1 tab(s) orally once a day Drug Name: tetanus-diphtheria toxoids (Td) adult/adolescent 2 units-2 units/0.5 mL intramuscular suspension Instructions: 0.5 milliliter(s) intramuscularly SIGNIFICANT EVENTS: Other Description:NON-SMOKER Past Medical History Description:TYPE 2 DIABETIC Description:COPD Past Surgical History Description:NO SURGERIES THIS YEAR REVIEW OF SYSTEMS CONSTITUTIONAL: Negative for: chills and fever INTEGUMENTARY: ( puncture wound to left index finger) PHYSICAL EXAM CONSTITUTIONAL: Well appearing, well nourished, awake, alert, oriented to person, place, time/situation and in no apparent distress. EYES: Clear bilaterally, pupils equal, round and reactive to light. NEUROLOGICAL: Alert and oriented, no focal deficits, no motor or sensory deficits. SKIN: Skin normal color for race, warm, dry. Superficial Puncture wound/ abrasion to left index finger without erythema, edema or active bleeding. HEME/LYMPH: No adenopathy or splenomegaly. No cervical, supraclavicular or inguinal lymphadenopathy. MEDICAL DECISION MAKING/ED COURSE MDM/ED COURSE: Pt to go to pharmacy for tetanus vaccination. Monitor for signs and symptoms of infection of wound, continue to cleanse with warm soap and water PRN, may apply DSD for comfort/protection. Pt verbalizes understanding and agrees with plan. CLINICAL IMPRESSION Diagnosis/Annotation: ED Dx Name:Puncture wound of finger of left hand Code:S61.239A Disposition: discharged Type: home ATTESTATION CRITICAL CARE TIME Is this a critically ill patient: no Electronic Signatures: Ld Jose (SIGHT MOUNTER-DUMPCART DRIVER) (Signed 21-Aug-2020 14:20) Authored: HPI, PMH, ROS, PE, MDM/ED Course, Clinical Impression, Attestation, Chart Review, Scores Last Updated: 21-Aug-2020 14:20 by Ld Jose (SIGHT MOUNTER-DUMPCART DRIVER) [facility] Cardiovascular Lab Reporton 12-07-2017 Cardiovascular Lab Report [facility] Patient Name: [facility] MR #: [id number] Physician: Dandy Brink,Department of M.D.Medicine Service Date: 12/06/2017Division of Birthdate: 1960Cardiology Room #: 0CAdult CardiovascularServic[address] [address] [facility] Cardiovascular Laboratory ReportCLINICAL PRESENTATION: The patient is a 57-year-old female with pastmedical history significant for mild coronary artery disease, COPD, priorDVT, HALEY, obesity, and type 2 diabetes mellitus. She has been having chestpain recently. She was evaluated by my colleague, Dr. Melendez. She had astress test, which was abnormal with anterior ischemia. She is referredfor cardiac catheterization.FINAL IMPRESSION:1. Mild coronary artery disease, diffuse luminal irregularities, but no significant stenosis identified.PLAN:1. Medical therapy for CAD.2. Reassurance regarding chest pain. She may have non-cardiac chest pain or possibly microvascular angina, however, no severe coronary stenosis was identified.3. Outpatient follow-up with Dr. Melendez and Dr. Ayala4. Coumadin was held for this procedure. We instructed the patient to resume coumadin tonight.PROCEDURES: Coronary angiogram, conscious sedation, 21 minutes.INDICATION: Chest pain, abnormal cardiac stress test.DESCRIPTION OF PROCEDURE: The patient was brought to cardiaccatheterization lab in a fasting state. Informed written consent wasobtained. She was prepped and draped in the usual sterile fashion over theright wrist. Time-out was performed. She was given Versed and fentanyl forsedation. 1% lidocaine was infiltrated over the right radial artery. A6-[place] Terumo Glidesheath slender was placed in the right radial artery.All catheter exchanges were made over the Magic Torque guidewire. A5-[place] JL3.5 was used to engage the left main coronary artery. A5-[place] JR5 was used to engage the right coronary artery. Coronaryangiograms performed in multiple orthogonal views using hand injection ofcontrast.At this point, the procedure was completed. All catheters and wires wereremoved from the body. The radial sheath was removed. A TR band wasapplied to obtain hemostasis. There were no apparent complications.TOTAL CONTRAST: 25 mL.TOTAL CONSCIOUS SEDATION TIME: 21 minutes.TOTAL FLUOROSCOPY TIME: 3 minutes and 0.5 Gy.FINDINGS: Hemodynamics:AO 112/60 (MAP 82).CORONARY ANGIOGRAM:1. Left main coronary artery: Patent.2. Left anterior descending coronary artery: The LAD is patent and has luminal irregularities.3. Left circumflex coronary artery: Circumflex is patent and has luminal irregularities.4. Right coronary artery: The RCA is patent and is dominant. The RCA has luminal irregularities.Electronically Signed by:Dandy Brink M.D. 12/07/2017 08:37 A Dandy Brink M.D.Date Dict: 12/06/2017/11:47 Jose/Dandy Brink M.D.Date Trans: 12/07/2017 01:40 [id number]: Bruno Ayala M.D. [address] [address] Jeovanny Melendez M.D. [facility] [facility] [address] [place] [facility] Social History Date Type Detail Facility Start: 11-04-2020 Tobacco smoking status Never s moked tobacco (finding) [facility] Sex Assigned At Female [facility] Evaluation + Plan note 08-04-2021 Laboratory Note Date & Type Note Facility 08-04-2021 Evaluation + Plan note Future Scheduled [id number] 08/04/21 [facility] Hospital course Narrative Note Date & Type Note Facility Hospital course Narrative No data available for this section [facility] Hospital Discharge instructions Note Date & Type Note Facility Hospital Discharge instructions No data available for this section [facility] Progress note Note Date & Type Note Facility Progress note No data available for this section [facility] Summary Purpose Family History No Family History Records FoundNo Family History Records FoundNo Family History Records FoundNo Family History Records Found Advance Directives No Advanced Directives Records FoundNo Advanced Directives Records FoundNo Advanced Directives Records FoundNo Advanced Directives Records Found Additional Source Comments INFORMATION SOURCE (unrecogn ized section and content) DATE CREATED AUTHOR 12/09/2017 [facility] DATE CREATED AUTHOR AUTHOR'S ORGANIZ ATION 08/24/2020 [facility] DATE CREATED AUTHOR AUTHOR'S ORGANIZ ATION 07/02/2022 [facility] DATE CREATED AUTHOR AUTHOR'S ORGANIZ ATION 10/23/2022 [facility] Patient Care team informatio n (unrecognized section and content) Personnel Name: Bruno Ayala MD Address: Address: [address] [place] [id number] FOR RECORDS PERTAINING TO PATIENTS WHO ARE OR HAVE BEEN ENROLLED IN A CHEMICAL DEPENDENCY/SUBSTANCEABUSE PROGRAM, SOME INFORMATION MAY BE OMITTED. This clinical summary was aggregated from multiple sources. Caution should be exercised in using it in the provision of clinical care. This summary normalizes information from multiple sources, and as a consequence, information in this document may materially change the coding, format and clinical context of patient data. In addition, data may be omitted in some cases. CLINICAL DECISIONS SHOULD BE BASED ON THE PRIMARY CLINICAL RECORDS. [facility], [facility]. provides no warranty or guarantee of the accuracy or completeness of information in this document.
[2023-12-03 11:56] LABS: Basophils Absolute Auto 0.1 10^3/uL (0.0-0.1); Basophils Percent Auto 0.6 % (0.2-2.0); Eosinophils Absolute Auto 0.1 10^3/uL (0.0-0.7); Eosinophils Percent Auto 1.3 % (0.9-7.0); Hematocrit 40.7 % (36.0-48.0); Hemoglobin 13.7 g/dL (12.0-16.0); Immature Granulocytes Abs Auto 0.02 10^3/uL (0.00-0.03); Immature Granulocytes Pct Auto 0.3 % (0.0-0.5); Lymphocytes Absolute Auto 2.4 10^3/uL (1.2-3.8); Mean Corpuscular HGB Conc 33.7 g/dL (29.9-35.2); Mean Corpuscular Hemoglobin 31.6 pg (26.7-34.0); Monocytes Absolute Auto 0.6 10^3/uL (0.3-0.8); Monocytes Percent Auto 7.5 % (1.7-12.0); Neutrophils Absolute Auto 4.7 10^3/uL (1.4-6.5); Neutrophils Percent Auto 60.3 % (43.0-75.0); Platelet Count 214 10^3/uL (150-450); Red Blood Count 4.33 10^6/uL (4.20-5.40); Red Cell Distribution Width 13.2 % (11.0-15.0); White Blood Count 7.9 10^3/uL (4.0-11.0)
[2023-12-03 12:26] LABS: Estimated Average Glucose 137 mg/dL; Glycohemoglobin A1C 6.4 % (4.5-6.2)
[2023-12-03 13:41] LABS: Alanine Aminotransferase 28 U/L (14-59); Albumin Level 3.5 g/dL (3.4-5.0); Alkaline Phosphatase 100 U/L (46-116); Aspartate Amino Transferase 28 U/L (15-37); BUN Creatinine Ratio 12.2; Calcium 8.7 mg/dL (8.5-10.1); Carbon Dioxide 25.5 mmol/L (21.0-32.0); Chloride 105 mmol/L (98-107); Chol HDL Ratio 3.4; Cholesterol 226 mg/dL (<=200); Estimated GFR (African America >60 (>=60); Estimated GFR (Non-African Ame >60 (>=60); Globulin 3.5 g/dL; Glucose 180 mg/dL (74-106); HDL Cholesterol 66 mg/dL (40-60); Potassium 4.5 mmol/L (3.5-5.1); Sodium 141 mmol/L (136-145); Thyroid Stimulating Hormone 2.855 uIU/mL (0.358-3.740); Triglycerides 130 mg/dL (<=150)
== END 2023-12-03 11:29 | disposition home or self-care (01) ==
LOC: LAB 11:30
PROVIDERS: PCP Family Medicine; Visit Provider Family Medicine
DX: E13.69 Other specified diabetes mellitus with other specified complication (principal); E78.00 Pure hypercholesterolemia, unspecified; G47.33 Obstructive sleep apnea (adult) (pediatric); I89.0 Lymphedema, not elsewhere classified; I10 Essential (primary) hypertension; Z12.12 Encounter for screening for malignant neoplasm of rectum; E03.9 Hypothyroidism, unspecified; R53.83 Other fatigue
CPT/HCPCS: 36415; 80053; 80061; 83036; 84439; 84443; 85025

== ENCOUNTER 2023-12-03 12:05 | Outpatient (RCR) | payer OTHER, MEDICAID, SELFPAY | END 2023-12-04 15:35 | disposition home or self-care (01) | LOC: OT 12:05 | PROVIDERS: PCP Family Medicine; Visit Provider Family Medicine | DX: I89.0 Lymphedema, not elsewhere classified (principal) | CPT/HCPCS: 97165; 97535 ==

== ENCOUNTER 2024-04-10 11:50 | Outpatient (OUT) | payer OTHER, MEDICAID, SELFPAY ==
--- OUTSIDE RECORDS SUMMARY | 2024-04-10 12:20 | XMS_ITS | CCD ---
Author Organization [facility] Care Team Providers Care [employer] Tractor Operator Name Role Phone BRINK, DANDY Unavailable Unavailable BRINK, DANDY Unavailable Unavailable HOY, BRUNO Unavailable Unavailable HOY, BRUNO Unavailable Unavailable BRINK, DANDY Unavailable Unavailable BRINK, DANDY Unavailable Unavailable HOY, BRUNO Unavailable Unavailable HOY, BRUNO Unavailable Unavailable Catia PROVIDERBruno Attending Aure Ayala PROVIDER, Bruno Admitting UnavailBruno Salvaodr Primary Care Physician CATIA Sims, DR CARR Attending Unavailable CATIA ., DR CARR Consulting Unavailable CATIA ., DR CARR Primary Care Unavailable CATIA Sims, DR CARR Admitting Unavailable Allergies Allergy Classification Reported Allergen(s) Allergy Type Date of Onset Reaction(s) Facility (2 sources) Adhesive agent; Translations: [ADHESIVES] Propensity to adverse reactions (disorder) 6 AOF [facility] Repository (3 sources) Egg; Translations: [EGGS] Food allergy (disorder) Anaphylaxis (disorder), Weal (disorder) [facility] Repository (2 sources) Sulfonamides (Antibiotic) Drug allergy (disorder) 6 AOF [facility] Rep[facility] (1 source) Sulfonamides (Antibiotic) Drug allergy (disorder) 6 AOF [facility] Rep[facility] (2 sources) Sulfonamides (Antibiotic); Translations: [sulfa drugs] Propensity to adverse reactions (disorder) [facility] Repository (1 source) Adhesive agent Drug allergy (disorder) [facility] Repository (1 source) egg extract Drug Allergy 6 [facility] Medications Current Medications Medication Drug Class(es) Dates [...] BID, # 180 tab(s), Refills(s) 1, Pharmacy: [facility], 158, cm, 11/04/20 13:45:00 EDT, Height/Length [...] Daily, # 90 tab(s), Refills(s) 1, Pharmacy: [facility], 158, cm, 07/30/20 15:32:00 EDT, Height/Length [...] Daily, # 45 tab(s), Refills(s) 1, Pharmacy: [facility], 158, cm, 11/04/20 13:45:00 EDT, Height/Length Dosing, 136.1, kg, 11/04/20 13:45:00 EDT, Weight Dosing Start Date: 03/14/21 Status: Ordered metFORMIN hydrochloride 1000 mg oral tablet (1 source) Biguanide Start: 09-12-2021 take 1 tablet by mouth twice daily metformin 1000 mg oral tablet 1,000 mg = 1 tab(s), Oral, BID, # 180 tab(s), Refills(s) 1, Pharmacy: [facility], 158, cm, 11/04/20 13:45:00 EDT, Height/Length Dosing, 136.1, kg, 11/04/20 13:45:00 EDT, Weight Dosing Start Date: 09/12/21 Status: Ordered [facility] [place] (1 source) Start: 07-30-2020 [facility] [place] Start Date: 07/30/20 Status: Ordered Mometasone (1 source) Corticosteroid Start: 11-24-2015 mometasone topical 0.1% cream Refill(s) 0 Start Date: 11/24/15 Status: Ordered One Touch Meter Verio Reflect Meter (1 source) Start: 07-31-2020 One Touch Meter Verio Reflect Meter One Touch Meter Verio Reflect Meter, See Instructions, 1 EA, 0, One touch Reflect meter DX E11.9 Test blood sugar up to TID, [facility]/pharmacy #[id number], Supply, 158, cm, 07/30/20 15:32:00 EDT, [...] Daily, # 90 tab(s), Refills(s) 1, Pharmacy: [facility], 158, cm, 11/04/20 13:45:00 EDT, Height/Length Dosing, 136.1, kg, 11/04/20 13:45:00 EDT, Weight Dosing Start Date: 09/12/21 Status: Ordered Completed/Discontinued Medications Medication Drug Class(es) Dates Sig (Normalized) Sig (Original) Diabetic shoes (1 source) Start: 07-30-2020 Diabetic shoes Diabetic shoes, See Instructions, 2 EA, 0, Diabetic Shoes DX E11.9, Supply Start Date: 07/30/20 Status: Ordered Problems Problem Classification Problem Date Documented Da te Episodic/Chronic Abdominal hernia (1 source) Irreducible umbilical hernia 07-28-2013 Episodic Asthma (1 source) Mild persistent asthma 11-04-2020 Chronic Cardiac dysrhythmias (1 source) Bradycardia, unspecified; Translations: [BRADYCARDIA, UNSPECIFIED] Onset: Chronic Chronic obstructive pulmonary disease and bronchiectasis (1 source) Chronic obstructive pulmonary disease, unspecified; Translations: [CHRONIC OBSTRUCTIVE PULMONARY DISEASE, UNSPECIFIED] Onset: 8 Chronic Coronary atherosclerosis and other heart disease (4 sources) Atherosclerotic heart disease of [place] coronary artery without angina pectoris; Translations: [ATHSCL HEART DISEASE OF [place] CORONARY ARTERY W/O ANG PCTRS] Onset: 8 [...] 8 07-30-2020 Episodic Other aftercare (1 source) extermination inspector (current) use of anticoagulants; Translations: [SENIOR CARE (CURRENT) USE OF ANTICOAGULANTS] Onset: 8 Episodic [...] REASONS] Onset: 8 Episodic Unclassified (1 source) nursing home (current) use of oral hypoglycemic drugs; Translations: [SADDLE TREE STITCHER (CURRENT) USE OF ORAL HYPOGLYCEMIC DRUGS] Onset: 8 Unclassified (2 sources) Unknown / UNK(Unknown) Onset: 8 Unclassified (2 sources) Patient encounter status 07-30-2020 Results Test Name Value Interpretation Reference Range Facility CBC AUTO DIFFon 10-14-2022 BASO # 0.0 103/ul Normal 0.0-0.1 [facility] Comment on above: Performed By: #### CBC #### [facility] [address] [place] [address] Dr. Grace Vences Basophils/100 WBC (Bld) 0.6 % Normal 0.2-2.0 [facility] Comment on above: Performed By: #### CBC #### [facility] [address] [address] [address] Grace Vences EO # 0.1 103/ul Normal 0.0-0.7 [facility] Comment on above: Performed By: #### CBC #### [facility] [address] [address] [address] Grace Vences Eosinophils/100 WBC (Bld) 1.1 % Normal 0.9-7.0 [facility] Comment on above: Performed By: #### CBC #### [facility] [address] [place] [address] Dr. Grace Vences Erythrocyte distribution width (RBC) [Ratio] 13.1 % Normal 11.0-15.0 [facility] Comment on above: Performed By: #### CBC #### [facility] [address] [place] [address] Dr. Grace Vences Hematocrit (Bld) [Volume fraction] 40.7 % Normal 36.0-48.0 [facility] Comment on above: Performed By: #### CBC #### [facility] [address] [place] [address] Dr. Grace Vences Hemoglobin (Bld) [Mass/Vol] 13.5 g/dL Normal 12.0-16.0 [facility] Comment on above: Performed By: #### CBC #### [facility] [address] [place] [address] Dr. Grace Vences IG # 0.03 10e3/ul Normal 0.00-0.03 [facility] Comment on above: Performed By: #### CBC #### [facility] [address] [place] [address] Dr. Grace Vences IG % 0.4 % Normal 0.0-0.5 [facility] Comment on above: Performed By: #### CBC #### [facility] [address] [place] [address] Dr. Grace Vences LYMPH # 2.2 103/ul Normal 1.2-3.8 [facility] Comment on above: Performed By: #### CBC #### [facility] [address] [place] [address] Dr. Grace Vences Lymphocytes/100 WBC (Bld) 31.0 % Normal 20.5-60.0 [facility] Comment on above: Performed By: #### CBC #### [facility] [address] [place] [address] Dr. Grace Vences MANUAL DIFF REQ NO Normal [facility] Comment on above: Performed By: #### CBC #### [facility] [address] [place] [address] Dr. Grace Vences MCH (RBC) [Entitic mass] 31.6 pg Normal 26.7-34.0 [facility] Comment on above: Performed By: #### CBC #### [facility] [address] [address] [address] Grace Vences MCHC (RBC) [Mass/Vol] 33.2 g/dL Normal 29.9-35.2 [facility] Comment on above: Performed By: #### CBC #### [facility] [address] [address] [address] Grace Vences MCV (RBC) [Entitic vol] 95.3 fL Normal 81.0-99.0 [facility] Comment on above: Performed By: #### CBC #### [facility] [address] [place] [address] Dr. Grace Vences MONO # 0.4 103/ul Normal 0.3-0.8 [facility] Comment on above: Performed By: #### CBC #### [facility] [address] [place] [address] Dr. Grace Vences Monocytes/100 WBC (Bld) 6.1 % Normal 1.7-12.0 [facility] Comment on above: Performed By: #### CBC #### [facility] [address] [place] [address] Dr. Grace Vences NEUT # 4.3 103/ul Normal 1.4-6.5 [facility] Comment on above: Performed By: #### CBC #### [facility] [address] [place] [address] Dr. Grace Vences Neutrophils/100 WBC (Bld) 60.8 % Normal 43.0-75.0 [facility] Comment on above: Performed By: #### CBC #### [facility] [address] [address] [address] Grace Vences Platelet mean volume (Bld) [Entitic vol] 10.5 fL Normal 9.5-13.5 [facility] Comment on above: Performed By: #### CBC #### [facility] [address] [place] [address] Dr. Grace Vences PLT 186 103/ul Normal 150-450 [facility] Comment on above: Performed By: #### CBC #### [facility] [address] [place] [address] Dr. Grace Vences RBC 4.27 106/ul Normal 4.20-5.40 [facility] Comment on above: Performed By: #### CBC #### [facility] [address] [address] [address] Grace Vences WBC 7.1 103/ul Normal 4.0-11.0 [facility] Comment on above: Performed By: #### CBC #### [facility] [address] [place] [address] Dr. Grace Vences FREE THYROXINE INDEX T7on FTI 2.75 Normal 1.30-4.50 [facility] Comment on above: Performed By: #### TSH, LIPID, CMP, T7 # ### [facility] [address] [place] [address] Dr. Grace Vences T3U 34.0 % Normal 30.0-39.0 [facility] Comment on above: Performed By: #### TSH, LIPID, CMP, T7 # ### [facility] [address] [place] [address] Dr. Grace Vences T4 [Mass/Vol] 8.10 ug/dL Normal 4.80-13.90 [facility] Comment on above: Performed By: #### TSH, LIPID, CMP, T7 # ### [facility] [address] [place] [address] Dr. Grace Vences GLYCOHEMOGLOBIN A1Con 2022 ADA RECOMMENDATION SEE BELOW Normal [facility] Comment on above: Result Comment: ADA RECOMMENDED LIMIT 4. 0 - 6.0 ADA THERAPEUTIC TARGET < 7.0 ACTION SUGGESTED > 7.0 Performed By: #### A 1C #### [facility] [address] [place] [address] Dr. Grace Vences Glucose [Mass/Vol] 301 mg/dL Normal [facility] Comment on above: Performed By: #### A1C #### [facility] [address] [place] [address] Dr. Grace Vences HbA1c (Bld) [Mass fraction] 12.1 % Critically high 4.5-6.2 [facility] Comment on above: Performed By: #### A1C #### [facility] [address] [address] [address] Grace Vences LIPID PROFILEon 10-14-2022 CHOL-HDL RATIO NORM SEE BELOW Normal [facility] Comment on above: Result Comment: 3.3 - 4.4 LOW RISK 4.4 - 7.1 AVERAGE RISK 7.1 - 11.0 MODERATE RISK >11.0 HIGH RISK Performed By: #### T SH, LIPID, CMP, T7 #### [facility] [address] [address] [address] Grace Vences Cholesterol [Mass/Vol] 149 mg/dL Normal <=200 [facility] Comment on above: Performed By: #### TSH, LIPID, CMP, T7 # ### [facility] [address] [address] [address] Grace Vences Cholesterol in HDL [Mass/Vol] 63 mg/dL Critically high 40-60 [facility] Comment on above: Performed By: #### TSH, LIPID, CMP, T7 # ### [facility] [address] [address] [address] Grace Vences Cholesterol in LDL [Mass/Vol] 59.6 mg/dL Normal [facility] Comment on above: Performed By: #### TSH, LIPID, CMP, T7 # ### [facility] [address] [address] [address] Grace Vences Cholesterol.tota l/Cholesterol in HDL [Mass ratio] 2.4 {ratio} Normal [facility] Comment on above: Performed By: #### TSH, LIPID, CMP, T7 # ### [facility] [address] [address] [address] Grace Vences HDL NORMAL > or = 60 mg/dl - LO W CARDIOVASCULAR RISK <40 mg/dl - HIGH CARDIOVASCULAR RISK Normal [facility] Comment on above: Performed By: #### TSH, LIPID, CMP, T7 # ### [facility] [address] [address] [address] Grace Vences LDL CALC NORMAL SEE BELOW Normal [facility] Comment on above: Result Comment: <100 mg/dl OPTIMAL 100 - 129 mg/dl NEAR OR ABOVE OPTIMAL 130 - 159 mg/dl BORDERLINE HIGH 160 - 189 mg/dl HIGH >190 mg/dl VERY HIGH Performed By: #### T SH, LIPID, CMP, T7 #### [facility] [address] [address] [address] Grace Vences Triglyceride [Mass/Vol] 132 mg/dL Normal <=150 [facility] Comment on above: Performed By: #### TSH, LIPID, CMP, T7 # ### [facility] [address] [address] [address] Grace Vences VLDL CALC 26.4 mg/dL Normal [facility] Comment on above: Performed By: #### TSH, LIPID, CMP, T7 # ### [facility] [address] [place] [address] Dr. Grace Vences PROF 14(COMP METB)on 023 Albumin [Mass/Vol] 3.4 g/dL Normal 3.4-5.0 [facility] Comment on above: Performed By: #### TSH, LIPID, CMP, T7 # ### [facility] [address] [address] [address] Grace Vences Albumin/Globulin [Mass ratio] 0.9 {ratio} Normal [facility] Comment on above: Performed By: #### TSH, LIPID, CMP, T7 # ### [facility] [address] [place] [address] Dr. Grace Vences ALP [Catalytic activity/Vol] 109 U/L Normal 46-116 [facility] Comment on above: Performed By: #### TSH, LIPID, CMP, T7 # ### [facility] [address] [address] [address] Grace Vences ALT [Catalytic activity/Vol] 64 U/L Critically high 14-59 [facility] Comment on above: Performed By: #### TSH, LIPID, CMP, T7 # ### [facility] [address] [address] [address] Grace Vences Anion gap [Moles/Vol] 14.8 mmol/L Normal [facility] Comment on above: Performed By: #### TSH, LIPID, CMP, T7 # ### [facility] [address] [address] [address] Grace Vences AST [Catalytic activity/Vol] 58 U/L Critically high 15-37 [facility] Comment on above: Performed By: #### TSH, LIPID, CMP, T7 # ### [facility] [address] [address] [address] Grace Vences Bilirubin [Mass/Vol] 1.0 mg/dL Normal 0.2-1.0 [facility] Comment on above: Performed By: #### TSH, LIPID, CMP, T7 # ### [facility] [address] [address] [address] Grace Vences Calcium [Mass/Vol] 9.2 mg/dL Normal 8.5-10.1 [facility] Comment on above: Performed By: #### TSH, LIPID, CMP, T7 # ### [facility] [address] [address] [address] Grace Vences Chloride [Moles/Vol] 102 mmol/L Normal 98-107 [facility] Comment on above: Performed By: #### TSH, LIPID, CMP, T7 # ### [facility] [address] [address] [address] Grace Vences CO2 [Moles/Vol] 27.4 mmol/L Normal 21.0-32.0 [facility] Comment on above: Performed By: #### TSH, LIPID, CMP, T7 # ### [facility] [address] [address] [address] Grace Vences Creatinine [Mass/Vol] 0.86 mg/dL Normal 0.55-1.02 [facility] Comment on above: Performed By: #### TSH, LIPID, CMP, T7 # ### [facility] [address] [place] [address] Dr. Grace Vences EGFR-AF LIBERIAN >60 Normal >=60 [facility] Comment on above: Performed By: #### TSH, LIPID, CMP, T7 # ### [facility] [address] [address] [address] Grace Vences EGFR-NON AF LIBERIAN >60 Normal >=60 [facility] Comment on above: Performed By: #### TSH, LIPID, CMP, T7 # ### [facility] [address] [address] [address] Grace eVnces Globulin (S) [Mass/Vol] 3.7 g/dL Normal [facility] Comment on above: Performed By: #### TSH, LIPID, CMP, T7 # ### [facility] [address] [address] [address] Grace Vences Glucose [Mass/Vol] 321 mg/dL Critically high 74-106 [facility] Comment on above: Performed By: #### TSH, LIPID, CMP, T7 # ### [facility] [address] [address] [address] Grace Vences Potassium [Moles/Vol] 4.2 mmol/L Normal 3.5-5.1 [facility] Comment on above: Performed By: #### TSH, LIPID, CMP, T7 # ### [facility] [address] [address] [address] Grace Vences Protein [Mass/Vol] 7.1 g/dL Normal 6.4-8.2 [facility] Comment on above: Performed By: #### TSH, LIPID, CMP, T7 # ### [facility] [address] [address] [address] Grace Vences Sodium [Moles/Vol] 140 mmol/L Normal 136-145 [facility] Comment on above: Performed By: #### TSH, LIPID, CMP, T7 # ### [facility] [address] [address] [address] Grace Vences Urea nitrogen [Mass/Vol] 9.0 mg/dL Normal 7.0-18.0 [facility] Comment on above: Performed By: #### TSH, LIPID, CMP, T7 # ### [facility] [address] [address] [address] Grace Vences Urea nitrogen/Creatin ine [Mass ratio] 10.5 mg/mg Normal [facility] Comment on above: Performed By: #### TSH, LIPID, CMP, T7 # ### [facility] [address] [place] [address] Dr. Grace Vences TSHon 10-14-2022 TSH 1.756 uIU/mL Normal 0.358-3.74 0 [facility] Comment on above: Performed By: #### TSH, LIPID, CMP, T7 # ### [facility] [address] [address] [address] Grace Vences Consent for Treatmenton 06-17 Consent for Treatment [id number]:127 Normal [facility] Physician Orderon 07-01-2022 Physician Order [id number]#1.00CD:127 Normal [facility] Retail - Clinical Noteon Retail - Clinical Note [id number]:127 Normal [facility] Retail - Clinical Noteon Retail - Clinical Note [id number]:127 Normal [facility] Provider Note - ED v2on Provider Note [...] no foreign object retained, cleansed by patient area captain; pt unsure of last tetanus immunization. Triage [...] ill patient: no Electronic Signatures: Ld Jose (MOTORCYCLE MECHANIC-SENIOR UI UX DESIGNER) (Signed 21-Aug-2020 14:20) Authored: HPI, PMH, ROS, PE, MDM/ED Course, Clinical Impression, Attestation, Chart Review, Scores Last Updated: 21-Aug-2020 14:20 by Ld Jose (MOTORCYCLE MECHANIC-SENIOR UI UX DESIGNER) [facility] Cardiovascular Lab Reporton 12-07-2017 Cardiovascular Lab Report [facility]: [id number] Physician: Dandy Brink,Department of M.D.Medicine Service Date: 12/06/2017Division of Birthdate: 1960Cardiology Room #: [id number] [place], [place] [address]Yjaum Fax Cardiovascular Laboratory ReportCLINICAL PRESENTATION: The patient [...] was infiltrated over the right radial artery. A6-[place]ovan Terumo Glidesheath slender was placed in the right radial artery.All catheter exchanges were made over the Magic Torque guidewire. A5-[place]ovan JL3.5 was used to engage the left main coronary artery. A5-[place]oldovan JR5 was used to engage the right [...] 08:37 A Dandy Brink M.D.Date Dict: 12/06/2017/11:47 A/Dandy Brink M.D.Date Trans: 12/07/2017 01:40 A/Santi_JN:[id number]: Bruno Ayala M.D. [address] [facility] [id number] Jeovanny Melendez M.D. [address] [place] [address] [facility] Encounters Encounter Date Encounter Type Care Provider Facility Start: 10-14-[address] BRUNO AYALA . Facili ty: Start: 07-01-2022 End: 07-02-2022 ambulatory Bruno Ayala PROVIDER [place] [place]: 07-01-2022 End: 07-01-2022 Patient encounter procedure Bruno Hoy [facility] Start: 12-06-2017 End: 12-07-2017 Patient encounter DANDY BRINK Facility:[facility] Start: 11-30-2017 End: 12-01-2017 Patient encounter DANDY BRINK Facility:[facility] Procedures Date Procedure Procedure Detail Performing Clinician Start: 01-16-2012 left needle localize d breast biopsy, x2 Bruno Hoy Start: 05-09-2010 [employer]rap[employer]ase 1 Bruno Ho y Comment on above: permanent vena cava filter [employer] filter, barry evice (physical object) Bruno Hoy Hernia of abdominal cavity (disorder) Bruno Hoy Hysterectomy Bruno Hoy Ligation of fallopian tube D ouglas Hoy Tonsillectomy Bruno Hoy Immunizations Immunization Date Immunization Notes Care Provider Fa percy 08-21-2020 tetanus toxoid, redu ita diphtheria toxoid, and acellular pertussis vaccine, adsorbed Bruno Hoy [facility] Payers Date Payer Category Payer Medicaid [id number] 2022 Medicare [id number] 2020 Unknown [id number] 1960 Unknown [id number] 1960 Unknown [id number] Medicare [id number] Social History Date Type Detail Facility Start: 11-04-2020 Tobacco smoking status Never s moked tobacco (finding) [facility] Sex Assigned At Female [facility] Medical Equipment Procedure Code Equipment Code Equipment Origin al Text Equipment Identifier Dates 30 Gauge Lancet, See Instructions, 100 EA, 11, Lancets 30 gauge for use with One Touch Verio Meter Test up to TID, [facility]/pharmacy #[id number], Supply, 158, cm, 07/30/20 15:32:00 EDT, Height/Length Dosing, 136.6, kg, 07/30/20 15:32:00 EDT, Weight Dosing Start: 07-31-2020 1 madhav, Topical, TID, 30 gram, Refill(s) 0 Start: 11-24-2015 1 madhav, Topical, BID, 30 gram, Refill(s) 0 Start: 11-24-2015 One Touch Verio reflect test Strips, See Instructions, 100 EA, 12, One Touch Verio reflect test Strips DX E.11.9 Test blood sugar up to TID, [facility], Supply, 158, cm, 11/04/20 13:45:00 EDT, Height/Length Dosing, 136.1, kg,... Start: 08-18-2021 Evaluation + Plan note 08-04-2021 Laboratory Note Date & Type Note Facility 08-04-2021 Evaluation + Plan note Future Scheduled [id number] 08/04/21 [facility] Hospital course Narrative Note Date & Type Note Facility Hospital course Narrative No data available for this section [facility] Hospital Discharge instructions Note Date & Type Note Facility Hospital Discharge instructions No data available for this section [facility] Progress note Note Date & Type Note Facility Progress note No data available for this section [facility] Summary Purpose Family History No Family History Records FoundNo Family History Records FoundNo Family History Records FoundNo Family History Records Found Advance Directives No Advanced Directives Records FoundNo Advanced Directives Records FoundNo Advanced Directives Records FoundNo Advanced Directives Records Found Additional Source Comments INFORMATION SOURCE (unrecogn ized section and content) DATE CREATED AUTHOR 12/09/2017 [place] [facility] DATE CREATED AUTHOR AUTHOR'S ORGANIZ ATION 08/24/2020 [facility] DATE CREATED AUTHOR AUTHOR'S ORGANIZ ATION 07/02/2022 [facility] DATE CREATED AUTHOR AUTHOR'S ORGANIZ ATION 10/23/2022 [facility] Patient Care team informatio n (unrecognized section and content) Personnel Name: Bruno Ayala MD Address: Address: [address] [place] [id number] FOR RECORDS PERTAINING TO PATIENTS WHO ARE [...] BE BASED ON THE PRIMARY CLINICAL RECORDS. [facility]. provides no warranty or guarantee of the accuracy or completeness of information in this document.
[2024-04-10 12:33] LABS: Basophils Absolute Auto 0.1 10^3/uL (0.0-0.1); Basophils Percent Auto 0.7 % (0.2-2.0); Eosinophils Absolute Auto 0.2 10^3/uL (0.0-0.7); Eosinophils Percent Auto 2.4 % (0.9-7.0); Hematocrit 37.9 % (36.0-48.0); Hemoglobin 12.2 g/dL (12.0-16.0); Immature Granulocytes Abs Auto 0.02 10^3/uL (0.00-0.03); Immature Granulocytes Pct Auto 0.3 % (0.0-0.5); Lymphocytes Absolute Auto 1.7 10^3/uL (1.2-3.8); Lymphocytes Percent Auto 24.9 % (20.5-60.0); Mean Corpuscular HGB Conc 32.2 g/dL (29.9-35.2); Mean Corpuscular Hemoglobin 31.3 pg (26.7-34.0); Mean Corpuscular Volume 97.2 fL (81.0-99.0); Mean Platelet Volume 10.2 fL (9.5-13.5); Monocytes Absolute Auto 0.6 10^3/uL (0.3-0.8); Monocytes Percent Auto 8.8 % (1.7-12.0); Neutrophils Absolute Auto 4.4 10^3/uL (1.4-6.5); Neutrophils Percent Auto 62.9 % (43.0-75.0); Platelet Count 197 10^3/uL (150-450); Red Cell Distribution Width 13.4 % (11.0-15.0)
[2024-04-10 13:05] LABS: Estimated Average Glucose 140 mg/dL; Glycohemoglobin A1C 6.5 % (4.5-6.2)
[2024-04-10 13:18] LABS: Alanine Aminotransferase 19 U/L (14-59); Albumin Globulin Ratio 1.2; Albumin Level 3.5 g/dL (3.4-5.0); Alkaline Phosphatase 82 U/L (46-116); Anion Gap 14.1; Aspartate Amino Transferase 18 U/L (15-37); Carbon Dioxide 28.3 mmol/L (21.0-32.0); Chloride 107 mmol/L (98-107); Chol HDL Ratio 2.7; Cholesterol 201 mg/dL (<=200); Estimated GFR (African America >60 (>=60 mL/min/1.73m^2); Estimated GFR (Non-African Ame 53 (>=60 mL/min/1.73m^2); Free T3 2.61 pg/mL (2.18-3.98); Globulin 2.9 g/dL; Glucose 142 mg/dL (74-106); HDL Cholesterol 74 mg/dL (40-60); Potassium 4.4 mmol/L (3.5-5.1); Sodium 145 mmol/L (136-145); Thyroid Stimulating Hormone 3.527 uIU/mL (0.358-3.740); Total Protein 6.4 g/dL (6.4-8.2); Triglycerides 86 mg/dL (<=150); VLDL CHOLESTEROL 17.2 mg/dL
== END 2024-04-10 11:51 | disposition home or self-care (01) ==
PROVIDERS: PCP Family Medicine; Visit Provider Family Medicine
DX: E78.00 Pure hypercholesterolemia, unspecified (principal); E11.69 Type 2 diabetes mellitus with other specified complication; I89.0 Lymphedema, not elsewhere classified; G47.33 Obstructive sleep apnea (adult) (pediatric); I10 Essential (primary) hypertension; Z12.12 Encounter for screening for malignant neoplasm of rectum; D64.9 Anemia, unspecified; I48.91 Unspecified atrial fibrillation
CPT/HCPCS: 36415; 80053; 80061; 83036; 83540; 84436; 84443; 84481; 85025

== ENCOUNTER 2024-10-13 09:52 | Outpatient (OUT) | payer MEDICARE, MEDICAID, SELFPAY ==
--- OUTSIDE RECORDS SUMMARY | 2022-06-02 10:00 | XMS_ITS | Continuity of Care Document ---
Author Organization [facility] Address [address] [place] [id number] Phone Care Team Providers Care Anatomic Pathologist Name Role Phone Jace Hadn DDS Unavailable Unavailable Allergies, Adverse Reactions, Alerts Substance Reaction Status Criticality adhesive tape Active No Information egg Active No Information Sulfa (Sulfonamide Antibiotics) Unknown Active No Information Medications Medication Instructions Dosage Effective Dates (start - stop) Status Comments Womens Daily Gummies 200 mcg chewable tablet - Active metformin 500 mg tablet take 1 tablet by oral route 2 times every day with morning and evening meals 500 MG - Active fenofibrate 40 mg tablet take 2 tablet by oral route every day 80 MG - Active Vitamin D3 400 unit capsule - Active carvedilol 3.125 mg tablet take 1 tablet by oral route 2 times every day with food 3.125 MG - Active glimepiride 1 mg tablet take 1 tablet by oral route every day 1 MG - Active Januvia 25 mg tablet take 1 tablet by or al route every day 25 MG - Active Procedures Procedure Date Oral Hygiene Instruction Resin Composite 2s; Posterior 3 Periodic Oral Eval Estab Patient 2021 Nutrit Couns For Control Of [place] Dis Feb PPE Prophylaxis Adult Oral Hygiene Instruction Prophylaxis Adult Oral Hygiene Instruction Intraoral-complete Series (bw) 19 Comp Oral Eval New/estab Patient 2018 Oral Hygiene Instruction Advance Directives Directive Yes / No Effective Date File Name No Information Encounters Encounter Description Practice Location Reason(s) For Visit Diagnoses Date Provider Providers Copied on Encounter [facility], [address] [place] [address], [id number], [place] tel:[phone] Dental Clinic filling (chief complaint) Encounter for screening for dental disorders Peace DDS Jace. [address] [place], [address], [place]. tel:[phone] [facility], [address], [place], [id number], [place] tel:[phone] Dental Clinic DL (chief complaint) Encounter for screening for dental disorders Peace DDS Jace. [address] [place], [address], [place]. tel:[phone] [facility], [address] [place] [address], [id number], [place] tel:[phone] Dental Clinic Encounter for screening for dental disorders Theresa Sanchez. [address], [place], [id number], [place]. tel:[phone] [facility], [address] [place] [address], [id number], [place] tel:[phone] Dental Clinic Encounter for screening for dental disorders Cher Flores. [address] [place], [place], [id number], [place]. tel:[phone] [facility], [address] [place] [address], [id number], tel:[phone] Dental Clinic Encounter for screening for dental disorders Mark Anthony Tavares. [address], [place], [id number], [place]. tel:[phone] Family History Family Member Type Diagnosis Age At Onset No Information Payers Payer name Insurance type Covered alliance party ID Yovana holden(s) [employer] Adv (Devoted 17 [id number] Social History Type Description Quantity Date Captured Comments Alcohol Use Details Unknown Caffeine Use Details Unknown Tobacco Use Status Current non-smoker Smoking Status Never smoker Sex Female Sexual Orientation Straight or heterosexual Gender Identity Female Vital Signs Date / Time: Height Weight BMI Pulse Rate Blood Pressure Temperature Respiratory Rate Body Surface Area Head Circumference Head Circ. Percentile Wt./[place]. Percentile BMI percentile Pulse Ox Inhaled Ox 1:52 PM 71 /min 126/72 mm[Hg] 98.30 F Chief Complaint And Reason For Visit From encounter dated '06/02/2022 14:00'. filling (chief complaint) Reason For Referral Reason For Referral No Information Plan Of Treatment Date Type Action Status Goal Colonoscopy. Due on 023 due Goal PRAPARE ASSESSMENT. Due on J due Goal Tdap. Due on due Goal FOBT. Due on due Goal Depression screening. Due on due Goal Influenza vaccine. Due on Ja due Goal Lipid panel. Due on 023 due Goal Zoster vaccine (1st). Due on due Goal Mammogram. Due on due Goal Colonoscopy. Due on 022 due Goal PRAPARE ASSESSMENT. Due on O due Goal Tdap. Due on due Goal FOBT. Due on due Goal Depression screening. Due on due Goal Influenza vaccine. Due on Oc due Goal Lipid panel. Due on 022 due Goal Zoster vaccine (1st). Due on due Goal Mammogram. Due on due History Of Present Illness Encounter Date Complaint History Of Prese nt Illness filling DL Functional Status Date Functional Assessmen t No Information Instructions Date Instruction Additional Infor mation No Information Assessments Type Assessment Date No Information Patient Care Teams Name Effective Dates (start - stop) Status Members No Information
--- OUTSIDE RECORDS SUMMARY | 2024-08-14 07:27 | XMS_ITS ---
Author Organization [facility] in [place] Address [address] [place] [address] Care Team Providers Care Lion Hunter Name Role Phone Chaitanya Bardales Primary Care Provider [phone] REASON FOR VISIT refill inh Medications Medication SIG (Take, Route, Frequency, Duration) Notes Start Date End Date Status Ventolin HFA 108 (90 Base) MCG/ACT 2 puff as needed Inhalation every 4 hrs 08/14/2024 Active Encounters Encounter Location Date Provider Diagnosis [facility] [address] [place] [address] 08/14/2024 Chaitanya Bardales Plan Of Treatment Medication Medication Name Sig Start Date Stop Date Notes Ventolin HFA 108 (90 Base) MCG/ACT 2 puff as needed Inhalation every 4 hrs 08/14/2024 Progress Notes * Ginna LOPEZ LDOB: (63 yo F)Acc No.[id number]:08/14/2024 Patient: Ginna CASAS :1960 A ge:63 Y S ex:Female Address:[address] [place] [address] * Refills Start Ventolin HFA Aerosol Solution, 108 (90 Base) MCG/ACT, Inhalation, 1, 2 puff as needed, every 4 hrs, Refills=11 * true * Date: Generated for Printi ng/Faxing/eTransmitting on: 0 10/13/2024 09:54 AM EDT
--- OUTSIDE RECORDS SUMMARY | 2024-09-19 10:00 | XMS_ITS ---
Author Organization [facility] in [place] Address [address] [place] [address] Care Team Providers Care Hadoop Developer Name Role Phone Chaitanya Bardales Primary Care Provider [phone] REASON FOR VISIT Medicare Wellnes Encounters Encounter Location Date Provider Diagnosis [facility] [address] [place] [address] 09/19/2024 Chaitanya Bardales Plan Of Treatment No Information Progress Notes * Ginna LOPEZ LDOB: (64 yo F)Acc No.[id number]:09/19/2024 UNLOCKED PROGRESS NOTE Progress Note Patient: Ginna CASAS Provider: Sloan Bardales MD (TTC) :1960 A ge:63 Y S ex:Female Date:09/19/2024 Address:[address] [facility] Subjective: * Chief Complaints: * 1 . [facility] * Medical History: Objective: * Vitals: Assessment: Plan: * Treatment: * * Electronic signature of Chaitanya Bardales MD, [id number] on 10/13/2024 at 09:54 AM EDT Sign off status: Pending Visit Status: C ANCPHONE (Cancelled Phone) * Provider: Sloan Bardales MD (TTC) Date: 09/19/2024 Generated for Printi ng/Faxing/eTransmitting on: 10/13/2024 09:54 AM EDT
--- OUTSIDE RECORDS SUMMARY | 2024-09-27 10:45 | XMS_ITS ---
Author Organization [facility] in [place] Address [address] [place] [address] Care Team Providers Care Commercial Management Accountant Name Role Phone Chaitanya Bardales Primary Care Provider REASON FOR VISIT yearly wellness exam Encounters Encounter Location Date Provider Diagnosis [facility] [address] [place] [address] 09/27/2024 Chaitanya Bardales Plan Of Treatment No Information Progress Notes * Ginna LOPEZ LDOB: (64 yo F)Acc No.[id number]:09/27/2024 UNLOCKED PROGRESS NOTE Progress Note Patient: Ginna CASAS Provider: Sloan Bardales MD (TTC) :1960 A ge:63 Y S ex:Female Date:09/27/2024 Address:[address] [place], [place] [id number] Subjective: * Chief Complaints: * 1 . Yearly wellness exam. * Medical History: Objective: * Vitals: Assessment: Plan: * Treatment: * * Electronic signature of Chaitanya Bardales MD, [id number] on 10/13/2024 at 09:54 AM EDT Sign off status: Pending Visit Status: C ANC (Cancelled) * Provider: Sloan Bardales MD (TTC) Date: 0 09/27/2024 Generated for Printi ng/Faxing/eTransmitting on: 0 10/13/2024 09:54 AM EDT
--- OUTSIDE RECORDS SUMMARY | 2024-10-13 09:54 | XMS_ITS | Encounter Summary ---
Author Organization [facility] Address [address] [place] [address] Care Team Providers Care Fundraising Manager Name Role Phone Unavailable Primary Care Provider Unavailabl e Encounter Details Date Type Department Care Team (Late st Contact Info) Description 11/16/2022 Abstract [facility] [address] [facility] [address] [place] [address] Orestes May, DPM FACFAS [address] [facility] [place] [address] Social History Tobacco Use Types Packs/Day Years Used Date Smoking Tobacco: Never Tobacco Cessation:Counseling Given: Not Answered Alcohol Use Standard Drinks/Week Comments Not Currently 0 (1 standard drink = 0.6 oz pur e alcohol) Comments Unknown Sex and Gender Information Value Date Recorded Sex Assigned at Not on file Legal Sex Female 8:34 PM EDT Gender Identity Not on file Sexual Orientation Not on file documented as of this encounter Plan of Treatment Not on file documented as of this encounter Visit Diagnoses Not on filedocumented in this encounter
--- OUTSIDE RECORDS SUMMARY | 2024-10-13 09:54 | XMS_ITS | Patient Health Record ---
Author Organization [facility] in [place] Address [address] [place] [address] Care Team Providers Care Pan Pusher Name Role Phone Rosa Ayala Primary Care Provider [phone] ROSA AYALALAS Unavailable [phone] Allergies Allergen (clinical drug ingredient) Drug/Non Drug Allergy documented on EMR Reaction Allergy Type Onset Date Status Adhesive rash Allergy Active Substance with sulfonamide structure and antibacterial mechanism of action (substance) Sulfa Antibiotics Unknown Drug Allergy Active Results Component Value Reference Range Notes GLYCOHEMOGLOBIN A1C Reviewed date:04/10/2024 02:29:39 PM Interpretation: Performing Lab: Notes/Report: [facility] , Glycohemoglobin A1C 6.5 4.5-6.2 % ADA THERAPEUTIC TARGET < 7.0 > 7.0 ADA RECOMMENDED LIMIT 4.0 - 6.0 ACTION SUGGESTED Estimated Average Glucose 140 Performing Lab: see note ML - [facility] LB IRON Reviewed date:04/10/2024 02:29:39 PM Interpretation: Performing Lab: Notes/Report: [facility] , Iron 72.0 50.0-170.0 ug/dL Performing Lab: see note ML - [facility] LB LIPID PROFILE Reviewed date:04/10/2024 02:29:39 PM Interpretation: Performing Lab: Notes/Report: [facility] , Triglycerides 86 <=150 mg/dL Cholesterol 201 <=200 mg/dL HDL Cholesterol 74 40-60 mg/dL <40 mg/dl - HIGH CARDIOVASCULAR RISK > or =60 mg/dl - LOW CARDIOVASCULAR RISK LDL Cholesterol Calculated 110.0 130-159 mg/dl BORDERLINE HIGH >190 mg/dl VERY HIGH <100 mg/dl OPTIMAL 100-129 mg/dl NEAR OR ABOVE OPTIMAL 160-189 mg/dl HIGH VLDL CHOLESTEROL 17.2 Chol HDL Ratio 2.7 >11.0 HIGH RISK 4.4 - 7.1 AVERAGE RISK 3.3 - 4.4 LOW RISK 7.1 - 11.0 MODERATE RISK Performing Lab: see note ML - [facility] LB PROF 14(COMP METB) Reviewed date:04/10/2024 02:29:39 PM Interpretation: Performing Lab: Notes/Report: [facility] , Sodium 145 136-145 mmol/L Potassium 4.4 3.5-5.1 mmol/L Chloride 107 98-107 mmol/L Carbon Dioxide 28.3 21.0-32.0 mmol/L Anion Gap 14.1 Glucose 142 74-106 mg/dL Blood Urea Nitrogen 20.0 7.0-18.0 mg/dL Creatinine 1.05 0.55-1.02 mg/dL Estimated GFR ( Rayna >60 >=60 mL/min/1.73m 2 Estimated GFR (Non- Fozia 53 >=60 mL/min/1.73m 2 BUN Creatinine Ratio 19.0 Calcium 9.0 8.5-10.1 mg/dL Bilirubin Total 1.0 0.2-1.0 mg/dL Aspartate Amino Transferase 18 15-37 U/L Alanine Aminotransferase 19 14-59 U/L Alkaline Phosphatase 82 46-116 U/L Total Protein 6.4 6.4-8.2 g/dL Albumin Level 3.5 3.4-5.0 g/dL Globulin 2.9 Albumin Globulin Ratio 1.2 Performing Lab: see note ML - [facility] LB T4 Reviewed date:04/10/2024 02:29:39 PM Interpretation: Performing Lab: Notes/Report: [facility] , T4 Thyroxine 9.70 4.80-13.90 ug/dL Performing Lab: see note ML - [facility] LB TSH Reviewed date:04/10/2024 02:29:39 PM Interpretation: Performing Lab: Notes/Report: [facility] , Thyroid Stimulating Hormone 3.527 0.358-3.740 u IU/mL Performing Lab: see note ML - [facility] LB FREE T3 Reviewed date:04/10/2024 02:29:39 PM Interpretation: Performing Lab: Notes/Report: [facility] , Free T3 2.61 2.18-3.98 pg/mL Performing Lab: see note ML - [facility] LB CBC AUTO DIFF Reviewed date:04/10/2024 02:29:39 PM Interpretation: Performing Lab: Notes/Report: [facility] , White Blood Count 7.0 4.0-11.0 10 3/uL Red Blood Count 3.90 4.20-5.40 10 6/uL Hemoglobin 12.2 12.0-16.0 g/dL Hematocrit 37.9 36.0-48.0 % Mean Corpuscular Volume 97.2 81.0-99.0 fL Mean Corpuscular Hemoglobin 31.3 26.7-34.0 pg Mean Corpuscular HGB Conc 32.2 29.9-35.2 g/dL Red Cell Distribution Width 13.4 11.0-15.0 % Platelet Count 197 150-450 10 3/uL Mean Platelet Volume 10.2 9.5-13.5 fL Neutrophils Percent Auto 62.9 43.0-75.0 % Lymphocytes Percent Auto 24.9 20.5-60.0 % Monocytes Percent Auto 8.8 1.7-12.0 % Eosinophils Percent Auto 2.4 0.9-7.0 % Basophils Percent Auto 0.7 0.2-2.0 % Immature Granulocytes Pct Auto 0.3 0.0-0.5 % Neutrophils Absolute Auto 4.4 1.4-6.5 10 3/uL Lymphocytes Absolute Auto 1.7 1.2-3.8 10 3/uL Monocytes Absolute Auto 0.6 0.3-0.8 10 3/uL Eosinophils Absolute Auto 0.2 0.0-0.7 10 3/uL Basophils Absolute Auto 0.1 0.0-0.1 10 3/uL Immature Granulocytes Abs Auto 0.02 0.00-0.03 10 3/uL Performing Lab: see note ML - [facility] LB TSH Reviewed date:12/05/2023 04:48:26 PM Interpretation: Performing Lab: Notes/Report: [facility] , Thyroid Stimulating Hormone 2.855 0.358-3.740 u IU/mL Performing Lab: see note ML - [facility] LB FREE T4 Reviewed date:12/05/2023 04:48:26 PM Interpretation: Performing Lab: Notes/Report: [facility] , Free T4 1.00 0.76-1.46 ng/dL Performing Lab: see note ML - [facility] LB PROF 14(COMP METB) Reviewed date:12/05/2023 04:48:26 PM Interpretation: Performing Lab: Notes/Report: [facility] , Sodium 141 136-145 mmol/L Potassium 4.5 3.5-5.1 mmol/L Chloride 105 98-107 mmol/L Carbon Dioxide 25.5 21.0-32.0 mmol/L Anion Gap 15.0 Glucose 180 74-106 mg/dL Blood Urea Nitrogen 11.0 7.0-18.0 mg/dL Creatinine 0.90 0.55-1.02 mg/dL Estimated GFR ( Rayna >60 >=60 Estimated GFR (Non- Fozia >60 >=60 BUN Creatinine Ratio 12.2 Calcium 8.7 8.5-10.1 mg/dL Bilirubin Total 1.0 0.2-1.0 mg/dL Aspartate Amino Transferase 28 15-37 U/L Alanine Aminotransferase 28 14-59 U/L Alkaline Phosphatase 100 46-116 U/L Total Protein 7.0 6.4-8.2 g/dL Albumin Level 3.5 3.4-5.0 g/dL Globulin 3.5 Albumin Globulin Ratio 1.0 Performing Lab: see note ML - [facility] LB LIPID PROFILE Reviewed date:12/05/2023 04:48:26 PM Interpretation: Performing Lab: Notes/Report: [facility] , Triglycerides 130 <=150 mg/dL Cholesterol 226 <=200 mg/dL HDL Cholesterol 66 40-60 mg/dL > or =60 mg/dl - LOW CARDIOVASCULAR RISK <40 mg/dl - HIGH CARDIOVASCULAR RISK LDL Cholesterol Calculated 134.0 <100 mg/dl OPTIMAL 100-129 mg/dl NEAR OR ABOVE OPTIMAL 160-189 mg/dl HIGH >190 mg/dl VERY HIGH 130-159 mg/dl BORDERLINE HIGH VLDL CHOLESTEROL 26.0 Chol HDL Ratio 3.4 4.4 - 7.1 AVERAGE RISK >11.0 HIGH RISK 3.3 - 4.4 LOW RISK 7.1 - 11.0 MODERATE RISK Performing Lab: see note ML - [facility] LB GLYCOHEMOGLOBIN A1C Reviewed date:12/05/2023 04:48:26 PM Interpretation: Performing Lab: Notes/Report: [facility] , Glycohemoglobin A1C 6.4 4.5-6.2 % > 7.0 ACTION SUGGESTED ADA THERAPEUTIC TARGET < 7.0 ADA RECOMMENDED LIMIT 4.0 - 6.0 Estimated Average Glucose 137 Performing Lab: see note ML - [facility] LB CBC AUTO DIFF Reviewed date:12/05/2023 04:48:26 PM Interpretation: Performing Lab: Notes/Report: [facility] , White Blood Count 7.9 4.0-11.0 10 3/uL Red Blood Count 4.33 4.20-5.40 10 6/uL Hemoglobin 13.7 12.0-16.0 g/dL Hematocrit 40.7 36.0-48.0 % Mean Corpuscular Volume 94.0 81.0-99.0 fL Mean Corpuscular Hemoglobin 31.6 26.7-34.0 pg Mean Corpuscular HGB Conc 33.7 29.9-35.2 g/dL Red Cell Distribution Width 13.2 11.0-15.0 % Platelet Count 214 150-450 10 3/uL Mean Platelet Volume 10.0 9.5-13.5 fL Neutrophils Percent Auto 60.3 43.0-75.0 % Lymphocytes Percent Auto 30.0 20.5-60.0 % Monocytes Percent Auto 7.5 1.7-12.0 % Eosinophils Percent Auto 1.3 0.9-7.0 % Basophils Percent Auto 0.6 0.2-2.0 % Immature Granulocytes Pct Auto 0.3 0.0-0.5 % Neutrophils Absolute Auto 4.7 1.4-6.5 10 3/uL Lymphocytes Absolute Auto 2.4 1.2-3.8 10 3/uL Monocytes Absolute Auto 0.6 0.3-0.8 10 3/uL Eosinophils Absolute Auto 0.1 0.0-0.7 10 3/uL Basophils Absolute Auto 0.1 0.0-0.1 10 3/uL Immature Granulocytes Abs Auto 0.02 0.00-0.03 10 3/uL Performing Lab: see note ML - [facility] LB Reason For Referral Diagnosis 1 Lymphedema (I89.0) Referral Organization [facility] Referring Provider First Name Rosa Referring Provider Last Name Catia Referring Provider Speciality Family Med icine Referred Provider [facility], Physical Therap y Referred Provider Specialty Physical Med icine and Rehabilitation Referral Priority Routine Medications Medication SIG (Take, Route, Frequency, Duration) Notes Start Date End Date Status Ventolin HFA 108 (90 Base) MCG/ACT 2 puff as needed Inhalation every 4 hrs 08/14/2024 Active metFORMIN HCl 1000 MG TAKE 1 TABLET TWIC E DAILY WITH MEALS for 90 Active Multi Complete - as directed Orally Active Ketoconazole 2 % 1 application Externally Once a day for 14 days 04/10/2024 Active Nystatin 138158 UNIT/GM small amount Externally Four times a day for 14 days 04/10/2024 Active Carvedilol 12.5 MG TAKE 1 TABLET TWICE A DAY WITH FOOD for 90 Active CPAP - use as directed, harjinder zavala current settings for 365 days 09/14/2023 Active Apixaban 5 MG 1 Orally bid 04/10/2024 Ac tive Diabetic Shoe - Wear shoes daily . Dx: E11.9 10/22/2023 Active Pioglitazone HCl 45 MG 1 tablet Orally O nce a day for 30 days DC order for 30mg 2PO QD 04/11/2024 Active Diclofenac Sodium 75 MG 1 tablet as needed Orally Twice a day for 30 days 04/10/2024 Active Immunizations Vaccine Route Administration Date Status Comme nts Flu, Flucelvax (96200) 2 yrs +, single-dose syringe (1455-7766) Unknown 04/09/2020 Administered Flu, Flucelvax (68816) 2 yrs +, single-dose syringe (6693-6077) Unknown 07/30/2021 Administered Tdap (Boostrix) Unknown 08/21/2020 Administered Social History Tobacco Use: Social History Observation Description Date Details (start date - stop date) Never Smoker NA - NA Tobacco Use/Smoking Question Answer Notes Patient is a nonsmoker Alcohol Screen (Audit-C) Question Answer Notes Did you have a drink containing alcohol in the p ast year? No Points 0 Interpretation Negative AUDIT-C (Standard) Question Answer Notes Did you have a drink containing alcohol in the p ast year? No Points 0 Interpretation Negative Problems Problem Type SNOMED Code ICD Code Onset Dates Problem Status W/U Status Risk Notes Problem 58140988 Obstructive sleep apnea (adult) (pediatric) (G47.33) Active confirmed Problem 96425056 Chronic obstructive pulmonary disease, unspecified (J44.9) Active confirmed Problem 57591376 Type 2 diabetes mellitus with other specified complication (E11.69) Active confirmed Problem 76428945 Other specified diabetes mellitus with other specified complication (E13.69) Active confirmed Problem 79373987 Hyperlipidemia, unspecified (E78.5) Active confirmed Problem 83023460 Unspecified glaucoma (H40.9) Active confirmed Problem Atrial fibrillation (21879513) Atrial fibrillation (I48.91) Active confirmed Problem Hypertension (I10) Active confirmed Problem Lymphedema (78211023) Lymphedema (I89.0) Active confirmed Problem 01332280 Pure hypercholesterol emia, unspecified (E78.00) Active confirmed Vital Signs Blood pressure diastolic 80 mm Hg 04/10/2024 Height 61 in 04/10/2024 Blood pressure systolic 130 mm Hg 04/10/2024 Weight 333.0 lbs 04/10/2024 BMI 62.91 kg/m2 04/10/2024 Procedures Procedure Date Ordered Date Performed Result Body Sit e ECG with Interpretation 04/10/2024 N/A CARDIO Echocardiogram 04/10/2024 N/A Encounters Encounter Location Date Provider Diagnosis [facility] [address] [place] [address] 04/10/2024 Rosa Hoy Pure hypercholesterolemia, unspecified E78.00 [facility] [address] [place] [address] 04/11/2024 Rosa Hoy Pure hypercholesterolemia, unspecified E78.00 [facility] [address] [place] [address] 04/11/2024 Rosa Hoy Pure hypercholesterolemia, unspecified E78.00 [facility] [address] [place] [address] 08/14/2024 Rosa [facility] [address] [place] [address] 12/10/2023 [facility] [address] [place] [address] 12/22/2023 Rosa [facility] [address] [place] [address] 01/05/2024 Rosa Ayala Other specified diabetes mellitus with other specified complication E13.69 [facility] [address] [facility] [place] [address] 02/04/2024 Rosa Ayala [facility] [address] [facility] [place] [address] 04/10/2024 Rosa Ayala [facility] [address] [facility] [place] [address] 04/10/2024 Rosa Ayala [facility] [address] [facility] [place] [address] 10/22/2023 BRUNO Dao [facility] [address] [facility] [place] [address] 11/29/2023 Rosa dao [facility] [address] [facility] [place] [address] 12/05/2023 Rosa Ayala [facility] [address] [facility] [place] [address] 12/09/2023 Rosa Ayala [facility] [address] [facility] [address] 12/03/2023 Rosa Ayala Other specified diabetes mellitus with other specified complication E13.69 ; Pure hypercholesterolemia, unspecified E78.00 ; Obstructive sleep apnea (adult) (pediatric) G47.33 and Lymphedema I89.0 [facility] [address] [facility] [place] [address] 04/10/2024 Rosa Ayala Pure hypercholesterolemia, unspecified E78.00 ; Type 2 diabetes mellitus with other specified complication E11.69 ; Hyperlipidemia, unspecified E78.5 ; Lymphedema I89.0 ; Obstructive sleep apnea (adult) (pediatric) G47.33 ; Hypertension I10 and Atrial fibrillation I48.91 Assessments Encounter Date Diagnosis (ICD Code) Assessment Notes Treatment Notes Treatment Clinical Notes Section Notes 12/03/2023 Other specified diabetes mellitus with other specified complication (ICD-10 - E13.69) 12/03/2023 Pure hypercholesterole meredith, unspecified (ICD-10 - E78.00) 04/10/2024 Pure hypercholesterole meredith, unspecified (ICD-10 - E78.00) needs labs 04/10/2024 Type 2 diabetes mellitus with other specified complication (ICD-10 - E11.69) suga are good 01/05/2024 Other specified diabetes mellitus with other specified complication (ICD-10 - E13.69) 04/10/2024 Pure hypercholesterole meredith, unspecified (ICD-10 - E78.00) 04/11/2024 Pure hypercholesterole meredith, unspecified (ICD-10 - E78.00) 04/11/2024 Pure hypercholesterole meredith, unspecified (ICD-10 - E78.00) 04/10/2024 Hyperlipidemia, unspecified (ICD-10 - E78.5) checkign on labs 12/03/2023 Obstructive sleep apnea (adult) (pediatric) (ICD-10 - G47.33) 12/03/2023 Lymphedema (ICD-10 - I89.0) 04/10/2024 Lymphedema (ICD-10 - I89.0) nedsPT 04/10/2024 Obstructive sleep apnea (adult) (pediatric) (ICD-10 - G47.33) mask 04/10/2024 Hypertension (ICD-10 - I10) good control 04/10/2024 Atrial fibrillation (ICD-10 - I48.91) Plan Of Treatment Pending Test Test Name Order Date CMP (COMPLETE METABOLIC PANEL) 3 CMP (COMPLETE METABOLIC PANEL) 4 CMP (COMPLETE METABOLIC PANEL) 4 HEMOGLOBIN A1C (GLYCO) 09/03/2023 HEMOGLOBIN A1C (GLYCO) 04/10/2024 HEMOGLOBIN A1C (GLYCO) 03/24/2023 IRON, TOTAL 03/24/2023 IRON, TOTAL 09/03/2023 IRON, TOTAL 04/10/2024 LIPID PANEL (CHOL/TRIG/HDL/LDL) 04/10/20 24 LIPID PANEL (CHOL/TRIG/HDL/LDL) 03/24/20 23 LIPID PANEL (CHOL/TRIG/HDL/LDL) 09/03/19 24 CBC WITH DIFF 09/03/2023 CBC WITH DIFF 03/24/2023 CBC WITH DIFF 04/10/2024 VITAMIN D, 25 LEVEL (TOTAL) 03/24/2023 VITAMIN D, 25 LEVEL (TOTAL) 09/03/2023 MAMM Mammograms CAD 09/03/2023 MAMM Mammograms CAD 12/11/2022 ECG with Interpretation 04/10/2024 CARDIO Echocardiogram 04/10/2024 Insulin Level 03/24/2023 High Sensitivity Troponin 04/10/2024 STOOL OCCULT BLOOD 04/10/2024 STOOL OCCULT BLOOD 03/24/2023 BNP 04/10/2024 BNP 03/24/2023 CBC AUTO DIFF 10/02/2022 GLYCOHEMOGLOBIN A1C 10/02/2022 LIPID PROFILE 10/02/2022 OCC BLD IMMUNOASSAY 12/03/2023 PROF 14(COMP METB) 10/02/2022 THYROID PROFILE WITH TSH 10/02/2022 THYROID PROFILE WITH TSH 12/03/2023 ECHOCARDIO M or 2D COMPLETE 03/24/2023 THYROID PANEL (T4/TSH/FREE T3) 3 THYROID PANEL (T4/TSH/FREE T3) 4 THYROID PANEL (T4/TSH/FREE T3) 4 VC VENOUS REFLUX LYLA LMT 03/24/2023 MM screening mammo BI 12/03/2023 ECG 12 lead 04/10/2024 Insurance Providers Payer Name Payer Address Payer Phone Subscriber Number Group Number Insured Name Patient Relationship to Insured Coverage Start Date Coverage End Date [employer] [address] [place] [phone] [id number] Ginna Lopez Self - patient is the insured MEDICAID [place] 2ND INS [address] [place], [place] [id number] Ginna Lopez Self - patient is the insured Medical (General) History Medical History History ICD Code High cholesterol E78.00 Other specified diabetes mellitus with o ther specified complication E13.69 Advanced COPD J44.9 Surgical History Surgery Date(Month/Year) Heart Cath 12/06/2017 Gilbert Filter Placement Umbilical Herniorrhaphy Hysterectomy-Total
--- OUTSIDE RECORDS SUMMARY | 2024-10-13 09:54 | XMS_ITS | Clinical Summary ---
Author Organization [facility] Address [address] [place] [address] Care Team Providers Care Mat Inspector Name Role Phone Unavailable Primary Care Provider Unavailabl e Family History Medical History Relation Name Comments Heart disease Father Hypertension Father Cataracts Mother Glaucoma Mother Glaucoma Sister Relation Name Status Comments Father Alive Mother Sister Social History Tobacco Use Types Packs/Day Years [...] on file Sexual Orientation Not on file Last Filed Vital Signs Vital Sign Reading Time Taken Comments Blood Pressure 122/74 07/01/2022 12:00 PM EST Pulse - - Temperature - - Respiratory Rate - - Oxygen Saturation - - Inhaled Oxygen Concentration - - Weight 159 kg (350 lb) 07/01/2022 12:00 PM EST Height 152.4 cm (5') 07/01/2022 12:00 PM EST Body Mass Index 68.35 07/01/2022 12:00 PM EST Plan of Treatment Not on file Insurance
--- OUTSIDE RECORDS SUMMARY | 2024-10-13 10:08 | XMS_ITS | CCD ---
Author Organization [facility] Care Team Providers Care Lead Printer Name Role Phone BRINK, DANDY Unavailable Unavailable BRINK, DANDY Unavailable Unavailable HOY, BRUNO Unavailable Unavailable HOY, BRUNO Unavailable Unavailable BRINK, DANDY Unavailable Unavailable BRINK, DANDY Unavailable Unavailable HOY, BRUNO Unavailable Unavailable HOY, BRUNO Unavailable Unavailable Catia PROVIDERBruno Attending Aure Ayala PROVIDER, Bruno Admitting UnavailBruno Salvador Primary Care Physician [phone] CATIA Sims, DR CARR Attending Unavailable CATIA ., DR CARR Consulting Unavailable CATIA ., DR CARR Primary Care Unavailable CATIA Sims, DR CARR Admitting Unavailable Allergies Allergy Classification Reported Allergen(s) Allergy Type Date of Onset Reaction(s) Facility (2 sources) Adhesive agent; Translations: [ADHESIVES] Propensity to adverse reactions (disorder) 6 AOF [facility] Repository (3 sources) Egg; Translations: [EGGS] Food allergy (disorder) 6 Anaphylaxis (disorder), Weal (disorder) [facility] Repository (2 sources) Sulfonamides (Antibiotic) Drug allergy (disorder) 6 AOF [facility] Repository (1 source) Sulfonamides (Antibiotic) Drug allergy (disorder) 6 AOF [facility] Repository (2 sources) Sulfonamides (Antibiotic); Translations: [sulfa drugs] Propensity to adverse reactions (disorder) [facility] Repository (1 source) Adhesive agent Drug allergy (disorder) [facility] Repository (1 source) egg extract Drug Allergy 6 [facility] Rep[facility] Medications Current Medications Medication Drug Class(es) [...] BID, # 180 tab(s), Refills(s) 1, Pharmacy: [facility], 158, cm, 11/04/20 13:45:00 EDT, Height/Length [...] Daily, # 90 tab(s), Refills(s) 1, Pharmacy: [facility], 158, cm, 07/30/20 15:32:00 EDT, Height/Length [...] Daily, # 45 tab(s), Refills(s) 1, Pharmacy: [facility], 158, cm, 11/04/20 13:45:00 EDT, Height/Length Dosing, 136.1, kg, 11/04/20 13:45:00 EDT, Weight Dosing Start Date: 03/14/21 Status: Ordered metFORMIN hydrochloride 1000 mg oral tablet (1 source) Biguanide Start: 09-12-2021 take 1 tablet by mouth twice daily metformin 1000 mg oral tablet 1,000 mg = 1 tab(s), Oral, BID, # 180 tab(s), Refills(s) 1, Pharmacy: [facility], 158, cm, 11/04/20 13:45:00 EDT, Height/Length Dosing, 136.1, kg, 11/04/20 13:45:00 EDT, Weight Dosing Start Date: 09/12/21 Status: Ordered [facility] Prescription (1 source) Start: 07-30-2020 [facility] Prescription Start Date: 07/30/20 Status: Ordered Mometasone (1 source) Corticosteroid Start: 11-24-2015 mometasone topical 0.1% cream Refill(s) 0 Start Date: 11/24/15 Status: Ordered One Touch Meter Verio Reflect Meter (1 source) Start: 07-31-2020 One Touch Meter Verio Reflect Meter One Touch Meter Verio Reflect Meter, See Instructions, 1 EA, 0, One touch Reflect meter DX E11.9 Test blood sugar up to TID, [facility]/pharmacy #[id number], Supply, 158, cm, 07/30/20 [...] Daily, # 90 tab(s), Refills(s) 1, Pharmacy: [facility], 158, cm, 11/04/20 13:45:00 EDT, Height/Length [...] disease (4 sources) Atherosclerotic heart disease of [place] coronary artery without angina pectoris; Translations: [ATHSCL HEART DISEASE OF [place] CORONARY ARTERY W/O ANG PCTRS] Onset: 8 [...] 07-30-2020 Episodic Other aftercare (1 source) intermediate project manager (current) use of anticoagulants; Translations: [NURSING HOME (CURRENT) USE OF ANTICOAGULANTS] Onset: 8 Episodic [...] Onset: 8 Episodic Unclassified (1 source) intermediate project manager (current) use of oral hypoglycemic drugs; Translations: [NURSING HOME (CURRENT) USE OF ORAL HYPOGLYCEMIC DRUGS] Onset: 8 Unclassified (2 sources) Unknown / UNK(Unknown) Onset: 8 Unclassified (2 sources) Patient encounter status 07-30-2020 Results Test Name Value Interpretation Reference Range Facility CBC AUTO DIFFon 10-14-2022 BASO # 0.0 103/ul Normal 0.0-0.1 [facility] Comment on above: Performed By: #### CBC #### [facility] [address] [place] [address] Dr. Grace Vences Basophils/100 WBC (Bld) 0.6 % Normal 0.2-2.0 [facility] Comment on above: Performed By: #### CBC #### [facility] [address] [address] [address] Grace Vences EO # 0.1 103/ul Normal 0.0-0.7 [facility] Comment on above: Performed By: #### CBC #### [facility] [address] [address] [address] Grace Vences Eosinophils/100 WBC (Bld) 1.1 % Normal 0.9-7.0 [facility] Comment on above: Performed By: #### CBC #### [facility] [address] [place] [address] Dr. Grace Vences Erythrocyte distribution width (RBC) [Ratio] 13.1 % Normal 11.0-15.0 [facility] Comment on above: Performed By: #### CBC #### [facility] [address] [place] [address] Dr. Grace Vences Hematocrit (Bld) [Volume fraction] 40.7 % Normal 36.0-48.0 [facility] [place] Comment on above: Performed By: #### CBC #### [facility] [address] [place] [address] Dr. Grace Vences Hemoglobin (Bld) [Mass/Vol] 13.5 g/dL Normal 12.0-16.0 [facility] Comment on above: Performed By: #### CBC #### [facility] [address] [place] [address] Dr. Grace Vences IG # 0.03 10e3/ul Normal 0.00-0.03 [facility] [place] Comment on above: Performed By: #### CBC #### [facility] [address] [place] [address] Dr. Grace Vences IG % 0.4 % Normal 0.0-0.5 [facility] [place] Comment on above: Performed By: #### CBC #### [facility] [address] [place] [address] Dr. Grace Vences LYMPH # 2.2 103/ul Normal 1.2-3.8 [facility] Comment on above: Performed By: #### CBC #### [facility] [address] [place] [address] Dr. Grace Vences Lymphocytes/100 WBC (Bld) 31.0 % Normal 20.5-60.0 [facility] Comment on above: Performed By: #### CBC #### [facility] [address] [place] [address] Dr. Grace Vences MANUAL DIFF REQ NO Normal [facility] [place] Comment on above: Performed By: #### CBC #### [facility] [address] [place] [address] Dr. Grace Vences MCH (RBC) [Entitic mass] 31.6 pg Normal 26.7-34.0 [facility] Comment on above: Performed By: #### CBC #### [facility] [address] [address] [address] Grace Vences MCHC (RBC) [Mass/Vol] 33.2 g/dL Normal 29.9-35.2 [facility] [place] Comment on above: Performed By: #### CBC #### [facility] [address] [address] [address] Grace Vences MCV (RBC) [Entitic vol] 95.3 fL Normal 81.0-99.0 [facility] [place] Comment on above: Performed By: #### CBC #### [facility] [address] [place] [address] Dr. Grace Vences MONO # 0.4 103/ul Normal 0.3-0.8 [facility] [place] Comment on above: Performed By: #### CBC #### [facility] [address] [place] [address] Dr. Grace Vences Monocytes/100 WBC (Bld) 6.1 % Normal 1.7-12.0 [facility] [place] Comment on above: Performed By: #### CBC #### [facility] [address] [place] [address] Dr. Grace Vences NEUT # 4.3 103/ul Normal 1.4-6.5 [facility] Comment on above: Performed By: #### CBC #### [facility] [address] [place] [address] Dr. Grace Vences Neutrophils/100 WBC (Bld) 60.8 % Normal 43.0-75.0 [facility] Comment on above: Performed By: #### CBC #### [facility] [address] [address] [address] Grace Vences Platelet mean volume (Bld) [Entitic vol] 10.5 fL Normal 9.5-13.5 [facility] Comment on above: Performed By: #### CBC #### [facility] [address] [place] [address] Dr. Grace Vences PLT 186 103/ul Normal 150-450 [facility] Comment on above: Performed By: #### CBC #### [facility] [address] [place] [address] Dr. Grcae Vences RBC 4.27 106/ul Normal 4.20-5.40 [facility] Comment on above: Performed By: #### CBC #### [facility] [address] [address] [address] Grace Vences WBC 7.1 103/ul Normal 4.0-11.0 [facility] [place] Comment on above: Performed By: #### CBC #### [facility] [address] [place] [address] Dr. Grace Vences FREE THYROXINE INDEX T7on FTI 2.75 Normal 1.30-4.50 [facility] [place] Comment on above: Performed By: #### TSH, LIPID, CMP, T7 # ### [facility] [address] [place] [address] Dr. Grace Vences T3U 34.0 % Normal 30.0-39.0 [facility] Comment on above: Performed By: #### TSH, LIPID, CMP, T7 # ### [facility] [address] [place] [address] Dr. Grace Vences T4 [Mass/Vol] 8.10 ug/dL Normal 4.80-13.90 [facility] [place] Comment on above: Performed By: #### TSH, LIPID, CMP, T7 # ### [facility] [address] [place] [address] Dr. Grace Vences GLYCOHEMOGLOBIN A1Con 2022 ADA RECOMMENDATION SEE BELOW Normal [facility] Comment on above: Result Comment: ADA RECOMMENDED LIMIT 4. 0 - 6.0 ADA THERAPEUTIC TARGET < 7.0 ACTION SUGGESTED > 7.0 Performed By: #### A 1C #### [facility] [address] [place] [address] Dr. Grace Vences Glucose [Mass/Vol] 301 mg/dL Normal [facility] Comment on above: Performed By: #### A1C #### [facility] [address] [place] [address] Dr. Grace Vences HbA1c (Bld) [Mass fraction] 12.1 % Critically high 4.5-6.2 [facility] Comment on above: Performed By: #### A1C #### [facility] [address] [address] [address] Grace Vences LIPID PROFILEon 10-14-2022 CHOL-HDL RATIO NORM SEE BELOW Normal [facility] Comment on above: Result Comment: 3.3 - 4.4 LOW RISK 4.4 - 7.1 AVERAGE RISK 7.1 - 11.0 MODERATE RISK >11.0 HIGH RISK Performed By: #### T SH, LIPID, CMP, T7 #### [facility] [address] [address] [address] Grace Vences Cholesterol [Mass/Vol] 149 mg/dL Normal <=200 [facility] [place] Comment on above: Performed By: #### TSH, LIPID, CMP, T7 # ### [facility] [address] [address] [address] Grace Vences Cholesterol in HDL [Mass/Vol] 63 mg/dL Critically high 40-60 [facility] [place] Comment on above: Performed By: #### TSH, LIPID, CMP, T7 # ### [facility] [address] [address] [address] Grace Vences Cholesterol in LDL [Mass/Vol] 59.6 mg/dL Normal [facility] [place] Comment on above: Performed By: #### TSH, LIPID, CMP, T7 # ### [facility] [address] [address] [address] Grace Vences Cholesterol.tota l/Cholesterol in HDL [Mass ratio] 2.4 {ratio} Normal [facility] [place] Comment on above: Performed By: #### TSH, LIPID, CMP, T7 # ### [facility] [address] [address] [address] Grace Vences HDL NORMAL > or = 60 mg/dl - LO W CARDIOVASCULAR RISK <40 mg/dl - HIGH CARDIOVASCULAR RISK Normal [facility] [place] Comment on above: Performed By: #### TSH, LIPID, CMP, T7 # ### [facility] [address] [address] [address] Grace Vences LDL CALC NORMAL SEE BELOW Normal [facility] Comment on above: Result Comment: <100 mg/dl OPTIMAL 100 - 129 mg/dl NEAR OR ABOVE OPTIMAL 130 - 159 mg/dl BORDERLINE HIGH 160 - 189 mg/dl HIGH >190 mg/dl VERY HIGH Performed By: #### T SH, LIPID, CMP, T7 #### [facility] [address] [address] [address] Grace Vences Triglyceride [Mass/Vol] 132 mg/dL Normal <=150 [facility] [place] Comment on above: Performed By: #### TSH, LIPID, CMP, T7 # ### [facility] [address] [address] [address] Grace Vences VLDL CALC 26.4 mg/dL Normal [facility] [place] Comment on above: Performed By: #### TSH, LIPID, CMP, T7 # ### [facility] [address] [place] [address] Dr. Grace Vences PROF 14(COMP METB)on 023 Albumin [Mass/Vol] 3.4 g/dL Normal 3.4-5.0 [facility] [place] Comment on above: Performed By: #### TSH, LIPID, CMP, T7 # ### [facility] [address] [address] [address] Grace Vencse Albumin/Globulin [Mass ratio] 0.9 {ratio} Normal [facility] Comment on above: Performed By: #### TSH, LIPID, CMP, T7 # ### [facility] [address] [place] [address] Dr. Grace Vences ALP [Catalytic activity/Vol] 109 U/L Normal 46-116 [facility] Comment on above: Performed By: #### TSH, LIPID, CMP, T7 # ### [facility] [address] [address] [address] Grace Vences ALT [Catalytic activity/Vol] 64 U/L Critically high 14-59 [facility] Comment on above: Performed By: #### TSH, LIPID, CMP, T7 # ### [facility] [address] [address] [address] Grace Vences Anion gap [Moles/Vol] 14.8 mmol/L Normal [facility] Comment on above: Performed By: #### TSH, LIPID, CMP, T7 # ### [facility] [address] [address] [address] Grace Vences AST [Catalytic activity/Vol] 58 U/L Critically high 15-37 [facility] [place] Comment on above: Performed By: #### TSH, LIPID, CMP, T7 # ### [facility] [address] [address] [address] Grace Vences Bilirubin [Mass/Vol] 1.0 mg/dL Normal 0.2-1.0 [facility] Comment on above: Performed By: #### TSH, LIPID, CMP, T7 # ### [facility] [address] [address] [address] Grace Vences Calcium [Mass/Vol] 9.2 mg/dL Normal 8.5-10.1 [facility] Comment on above: Performed By: #### TSH, LIPID, CMP, T7 # ### [facility] [address] [address] [address] Grace Vences Chloride [Moles/Vol] 102 mmol/L Normal 98-107 [facility] Comment on above: Performed By: #### TSH, LIPID, CMP, T7 # ### [facility] [address] [address] [address] Grace Vences CO2 [Moles/Vol] 27.4 mmol/L Normal 21.0-32.0 [facility] Comment on above: Performed By: #### TSH, LIPID, CMP, T7 # ### [facility] [address] [address] [address] Grace Vences Creatinine [Mass/Vol] 0.86 mg/dL Normal 0.55-1.02 [facility] [place] Comment on above: Performed By: #### TSH, LIPID, CMP, T7 # ### [facility] [address] [place] [address] Dr. Grace Vences EGFR-AF JAPANESE >60 Normal >=60 [facility] Comment on above: Performed By: #### TSH, LIPID, CMP, T7 # ### [facility] [address] [address] [address] Grace Vences EGFR-NON AF JAPANESE >60 Normal >=60 [facility] Comment on above: Performed By: #### TSH, LIPID, CMP, T7 # ### [facility] [address] [address] [address] Grace Vences Globulin (S) [Mass/Vol] 3.7 g/dL Normal [facility] [place] Comment on above: Performed By: #### TSH, LIPID, CMP, T7 # ### [facility] [address] [address] [address] Grace Vences Glucose [Mass/Vol] 321 mg/dL Critically high 74-106 [facility] [place] Comment on above: Performed By: #### TSH, LIPID, CMP, T7 # ### [facility] [address] [address] [address] Grace Vences Potassium [Moles/Vol] 4.2 mmol/L Normal 3.5-5.1 [facility] [place] Comment on above: Performed By: #### TSH, LIPID, CMP, T7 # ### [facility] [address] [address] [address] Grace Vences Protein [Mass/Vol] 7.1 g/dL Normal 6.4-8.2 [facility] Comment on above: Performed By: #### TSH, LIPID, CMP, T7 # ### [facility] [address] [address] [address] Grace Vences Sodium [Moles/Vol] 140 mmol/L Normal 136-145 [facility] Comment on above: Performed By: #### TSH, LIPID, CMP, T7 # ### [facility] [address] [address] [address] Grace Vences Urea nitrogen [Mass/Vol] 9.0 mg/dL Normal 7.0-18.0 [facility] Comment on above: Performed By: #### TSH, LIPID, CMP, T7 # ### [facility] [address] [address] [address] Grace Vences Urea nitrogen/Creatin ine [Mass ratio] 10.5 mg/mg Normal [facility] Comment on above: Performed By: #### TSH, LIPID, CMP, T7 # ### [facility] [address] [place] [address] Dr. Grace Vences TSHon 10-14-2022 TSH 1.756 uIU/mL Normal 0.358-3.74 0 [facility] [place] Comment on above: Performed By: #### TSH, LIPID, CMP, T7 # ### [facility] [address] [address] [address] Grace Vences Consent for Treatmenton 06-17 Consent for Treatment [id number]:127 Normal [facility] Physician Orderon 07-01-2022 Physician Order [id number]:127 Normal [facility] Retail - Clinical Noteon Retail - Clinical Note [id number]:127 Normal [facility] Retail - Clinical Noteon Retail - Clinical Note [id number]:127 Normal [facility] Provider Note - ED v2on Provider Note [...] no foreign object retained, cleansed by patient correctional officer captain; pt unsure of last tetanus immunization. [...] ill patient: no Electronic Signatures: Ld Jose (ORGAN BUILDER-HEALTH COUNSELOR) (Signed 21-Aug-2020 14:20) Authored: HPI, PMH, ROS, PE, MDM/ED Course, Clinical Impression, Attestation, Chart Review, Scores Last Updated: 21-Aug-2020 14:20 by Ld Jose (ORGAN BUILDER-HEALTH COUNSELOR) [facility] Cardiovascular Lab Reporton 12-07-2017 Cardiovascular Lab Report [facility]: [id number] Physician: Dandy Brink,Department of M.D.Medicine Service Date: 12/06/2017Division of Birthdate: 1960Cardiology Room #: [address] [place], [place] [address]Ztjmt Fax Cardiovascular Laboratory ReportCLINICAL PRESENTATION: The patient [...] was infiltrated over the right radial artery. A6-Kiswahili Terumo Glidesheath slender was placed in the right radial artery.All catheter exchanges were made over the Magic Torque guidewire. A5-Kiswahili JL3.5 was used to engage the left main coronary artery. A5-Kiswahili JR5 was used to engage the right [...] 12/06/2017/11:47 A/Dandy Brink M.D.Date Trans: 12/07/2017 01:40 A/Santi_JN:[id number]: Bruno Ayala M.D. [address] [facility] [id number] Jeovanny Melendez M.D. [address] [place] [address] [id number] [facility] Encounters Encounter Date Encounter Type Care Provider Facility Start: 10-14-[address] BRUNO AYALA . Facili ty: Start: 07-01-2022 End: 07-02-2022 ambulatory Bruno Ayala PROVIDER Facility:[facility] Start: 07-01-2022 End: 07-01-2022 Patient encounter procedure Bruno Hoy [facility] Start: 12-06-2017 End: 12-07-2017 Patient encounter DANDY BRINK Facility:[facility] Start: 11-30-2017 End: 12-01-2017 Patient encounter DANDY BRINK Facility:[facility] Procedures Date Procedure Procedure Detail Performing Clinician Start: 01-16-2012 left needle localize d breast biopsy, x2 Bruno Hoy Start: 05-09-2010 TrapEase 1 Bruno Ho y Comment on above: permanent vena cava filter [place] filter, barry evice (physical object) Bruno Hoy Hernia of abdominal cavity (disorder) Bruno Hoy Hysterectomy Bruno Hoy Ligation of fallopian tube D ouglas Hoy Tonsillectomy Bruno Hoy Immunizations Immunization Date Immunization Notes Care Provider Fa percy 08-21-2020 tetanus toxoid, redu ita diphtheria toxoid, and acellular pertussis vaccine, adsorbed Bruno Hoy [facility] Primary Care Payers Date Payer Category Payer Medicaid [id number] 2022 Medicare [id number] 2020 Unknown [id number] 1960 Unknown [id number] 1960 Unknown [id number] Medicare [id number] Social History Date Type Detail Facility Start: 11-04-2020 Tobacco smoking status Never s moked tobacco (finding) [facility] Sex Assigned At Female [facility] Medical Equipment Procedure Code Equipment Code Equipment Origin al Text Equipment Identifier Dates 30 Gauge Lancet, See Instructions, 100 EA, 11, Lancets 30 gauge for use with One Touch Verio Meter Test up to TID, [facility]/pharmacy #[id number], Supply, 158, cm, 07/30/20 [...] E.11.9 Test blood sugar up to TID, [facility], Supply, 158, cm, 11/04/20 13:45:00 EDT, Height/Length Dosing, 136.1, kg,... Start: 08-18-2021 Evaluation + Plan note 08-04-2021 Laboratory Note Date & Type Note Facility 08-04-2021 Evaluation + Plan note Future Scheduled [id number] 08/04/21 [facility] Hospital course Narrative Note Date & Type Note Facility Hospital course Narrative No data available for this section [facility] Hospital Discharge instructions Note Date & Type Note Facility Hospital Discharge instructions No data available for this section [facility] Progress note Note Date & Type Note Facility Progress note No data available for this section [facility] Summary Purpose Family History No Family History Records FoundNo Family History Records FoundNo Family History Records FoundNo Family History Records Found Advance Directives No Advanced Directives Records FoundNo Advanced Directives Records FoundNo Advanced Directives Records FoundNo Advanced Directives Records Found Additional Source Comments INFORMATION SOURCE (unrecogn ized section and content) DATE CREATED AUTHOR 12/09/2017 [facility] DATE CREATED AUTHOR AUTHOR'S ORGANIZ ATION 08/24/2020 [facility] DATE CREATED AUTHOR AUTHOR'S ORGANIZ ATION 07/02/2022 [facility] DATE CREATED AUTHOR AUTHOR'S ORGANIZ ATION 10/23/2022 [facility] Patient Care team informatio n (unrecognized section and content) Personnel Name: Bruno Ayala MD Address: Address: [address] [place] [id number] FOR RECORDS PERTAINING TO [...] BE BASED ON THE PRIMARY CLINICAL RECORDS. [facility]. provides no warranty or guarantee of the accuracy or completeness of information in this document.
--- NOTE | 2024-10-13 10:48 | MM_ITS ---
Patient Name: MEKA ALVES MR#: [id number] : 1960 Exam Date: 10/13/2024 Ordering Doctor: DR BRUNO AYALA . RADIOLOGY REPORT PROCEDURE: MM TOMOSYNTHESIS SCREENING BI COMPARISON: MG MAMM SCREEN 3D LYLA CAD, 08/12/2021. MG MAMM SCREEN LYLA W CAD, 10/12/2019. MG MAMM LYLA SCRN W CAD DIG, 09/09/2018. INDICATIONS: Screening Calculator Name NCI Breast Cancer Risk Assessment Tool 5 Year Breast Cancer Risk 1.60% Lifetime Breast Cancer Risk 5.80% Personal Breast Cancer No Personal Ovarian Cancer No Treatments None Family Cancers None LOCATION: [facility] BREAST COMPOSITION: There are scattered areas of fibroglandular density. FINDINGS: RIGHT BREAST: No significant suspicious finding. Benign-appearing calcifications are redemonstrated . LEFT BREAST: No significant suspicious finding. Benign-appearing calcifications are redemonstrated. DIAGNOSTIC CATEGORY 2--BENIGN FINDING: RECOMMENDATIONS: ROUTINE MAMMOGRAM AND CLINICAL EVALUATION IN 12 MONTHS. PLEASE NOTE: A NORMAL MAMMOGRAM DOES NOT EXCLUDE THE POSSIBILITY OF BREAST CANCER. A CLINICALLY SUSPICIOUS PALPABLE LUMP SHOULD BE BIOPSIED. Dictated by: Daniel Soto MD on 10/13/2024 at 11:08 Approved by: Daniel Soto MD on 10/13/2024 at 11:38
== END 2024-10-13 09:53 | disposition home or self-care (01) ==
LOC: MAMMO 09:52
PROVIDERS: PCP Family Medicine; Visit Provider Family Medicine
DX: Z12.31 Encounter for screening mammogram for malignant neoplasm of breast (principal)
CPT/HCPCS: 77063; 77067

== ENCOUNTER 2025-02-13 09:50 | Outpatient (OUT) | payer MEDICARE, MEDICAID, SELFPAY ==
--- OUTSIDE RECORDS SUMMARY | 2024-09-19 10:00 | XMS_ITS ---
Author Organization [facility] in [place] Address [address] [place] [address] Care Team Providers Care Supervisor Drying And Winding Name Role Phone CatiaChaitanya Primary Care Provider REASON FOR VISIT Medicare Wellnes Encounters Encounter Location Date Provider Diagnosis [facility] [address] [place] [address] 09/19/2024 Chaitanya Bardales Plan Of Treatment Next Appt Details Provider Name:Chaitanya Mercy Bardales, 10:00:00 AM, [address] [place], [address], Progress Notes * Ginna LOPEZ LDOB: (64 yo F)Acc No.[id number]:09/19/2024 UNLOCKED PROGRESS NOTE Progress Note Patient: Ginna CASAS Provider: [facility]loan Bardales ([facility] Constant[place] :1960 A ge:63 Y S ex:Female Date:09/19/2024 Address:[address] [place], [place] Subjective: * Chief Complaints: * 1 . [facility] * Medical History: Objective: * Vitals: Assessment: Plan: * Treatment: * * Electronic signature of Chaitanya Bardales MD, [id number] on 02/13/2025 at 09:55 AM EDT Sign off status: Pending Visit Status: C ANCPHONE (Cancelled Phone) * Provider: Sloan Bardales ([facility])MD Date: 0 09/19/2024 Generated for Martha zafar/Caitlin/Feliz on: 0 02/13/2025 09:55 AM EDT
--- OUTSIDE RECORDS SUMMARY | 2024-09-27 10:45 | XMS_ITS ---
Author Organization [facility] in [place] Address [address] [place] [address] Care Team Providers Care Sectional Belt Mold Assembler Name Role Phone CatiaChaitanya Primary Care Provider REASON FOR VISIT yearly wellness exam Encounters Encounter Location Date Provider Diagnosis [facility] [address] [place] [address] 09/27/2024 Chaitanya Bardales Plan Of Treatment Next Appt Details Provider Name:Chaitanya Mercy Bardales, 10:00:00 AM, [address] [place], [address], Progress Notes * Ginna LOPEZ LDOB: (64 yo F)Acc No.[id number]:09/27/2024 UNLOCKED PROGRESS NOTE Progress Note Patient: Ginna CASAS Provider[facility]loan Bardales ([facility] Constant[facility] :1960 A ge:63 Y S ex:Female Date:09/27/2024 Address:[address] [place], [place] [address] Subjective: * Chief Complaints: * 1 . Yearly wellness exam. * Medical History: Objective: * Vitals: Assessment: Plan: * Treatment: * * Electronic signature of Chaitanya Bardales MD, [id number] on 02/13/2025 at 09:55 AM EDT Sign off status: Pending Visit Status: C ANC (Cancelled) * Provider: Sloan Bardales ([facility])MD Date: 0 09/27/2024 Generated for Martha zafar/Caitlin/Feliz on: 0 02/13/2025 09:55 AM EDT
--- OUTSIDE RECORDS SUMMARY | 2024-11-14 05:00 | XMS_ITS ---
Author Organization The [facility] [place] Address [address] [place] [address] Care Team Providers Care Engineering Design Supervisor Name Role Phone CatiaChaitanya Primary Care Provider REASON FOR VISIT Medicare Wellnes Encounters Encounter Location Date Provider Diagnosis [facility] [address] [place] [address] 11/14/2024 Chaitanya Bardales Plan Of Treatment Next Appt Details Provider Name:Chaitanya [facility] Bardales, 10:00:00 AM, [address] [place], [address], Progress Notes * Ginna LOPEZ LDOB: (64 yo F)Acc No.[id number]:11/14/2024 UNLOCKED PROGRESS NOTE Progress Note Patient: Ginna CASAS Provider[facility]loan Bardales [facility] [place] :1960 A ge:64 Y S ex:Female Date:11/14/2024 Address:[address], [place] Subjective: * Chief Complaints: * 1 . Medicare Wellnes. * Medical History: Objective: * Vitals: Assessment: Plan: * Treatment: * * Electronic signature of Chaitanya Bardales MD, [id number] on 02/13/2025 at 09:56 AM EDT Sign off status: Pending Visit Status: C ANC (Cancelled) * Provider: Sloan Bardales (KEL)MD Date: 0 11/14/2024 Generated for Martha zafar/Caitlin/Feliz on: 0 02/13/2025 09:56 AM EDT
--- OUTSIDE RECORDS SUMMARY | 2024-11-14 06:00 | XMS_ITS ---
Author Organization The [facility] in [place] Address [address] [place] [address] Care Team Providers Care Breakdown Man Name Role Phone Catia Chaitanya Primary Care Provider [phone] REASON FOR VISIT yearly check up Encounters Encounter Location Date Provider Diagnosis [facility] [address] [place] [address] 11/14/2024 Chaitanya Bardales Plan Of Treatment Next Appt Details Provider Name:Chaitanya Mercy Bardales, 10:00:00 AM, [address] [place], [address], Progress Notes * Ginna LOPEZ LDOB: (64 yo F)Acc No.[id number]:11/14/2024 UNLOCKED PROGRESS NOTE Progress Note Patient: Ginna CASAS Provider: Sloan Bardales ([facility] [place] :1960 A ge:64 Y S ex:Female Date:11/14/2024 Address:[address] [place], [place] [phone] Subjective: * Chief Complaints: * 1 . Yearly check up. * Medical History: Objective: * Vitals: Assessment: Plan: * Treatment: * * Electronic signature of Chaitanya Bardales MD, [id number] on 02/13/2025 at 09:55 AM EDT Sign off status: Pending Visit Status: N /S N/C (No Show/No Charge) * Provider: Slona Bardales ([facility])MD Date: 0 11/14/2024 Generated for Martha zafar/Caitlin/Feliz on: 0 02/13/2025 09:55 AM EDT
--- OUTSIDE RECORDS SUMMARY | 2025-02-13 09:58 | XMS_ITS | Patient Health Record ---
Author Organization The [facility] [place] Address [address] [facility] [place] [address] Care Team Providers Care Boring Mill Set Up Operator Name Role Phone Chaitanya Bardales Primary Care Provider Allergies Allergen (clinical drug ingredient) Drug/Non Drug Allergy documented on EMR Reaction Allergy Type Onset Date Status Adhesive rash Allergy Active Substance with sulfonamide structure and antibacterial mechanism of action (substance) Sulfa Antibiotics Unknown Drug Allergy Active Results Component Value Reference Range Notes MM tomosynthesis screening B I Reviewed date:10/15/2024 04:35:13 PM Interpretation: Performing Lab: Notes/Report: Source Facility: [place] [address] Mammography Report Signed Patient: GINNA LOPEZ MR#: [id number] : 1960 Acct:[id number] Age/Sex: 64 / F ADM Date: 10/13/24 Loc: MAMMO Attending Dr: Bruno Bardales M.D. Ordering Physician: Bruno Bardales M.D. Results: Date of Service: 10/13/24 Follow Up: Procedure(s): MM tomosynthesis screening BI Accession Number(s): [id number] cc: Bruno Bardales M.D. Patient Name: GINNA LOPEZ MR#: [id number] : 1960 Exam Date: 10/13/2024 Ordering Doctor: DR BRUNO BARDALES . RADIOLOGY REPORT PROCEDURE: MM TOMOSYNTHESIS SCREENING BI COMPARISON: MG MAMM SCREEN 3D LYLA CAD, 08/12/2021. MG MAMM SCREEN LYLA W CAD, 10/12/2019. MG MAMM LYLA SCRN W CAD DIG, 09/09/2018. INDICATIONS: Screening Calculator Name NCI Breast Cancer Risk Assessment Tool 5 Year Breast Cancer Risk 1.60% Lifetime Breast Cancer Risk 5.80% Personal Breast Cancer No Personal Ovarian Cancer No Treatments None Family Cancers None LOCATION: [facility] BREAST COMPOSITION: There are scattered areas of fibroglandular density. FINDINGS: RIGHT BREAST: No significant suspicious finding. Benign-appearing calcifications are redemonstrated . LEFT BREAST: No significant suspicious finding. Benign-appearing calcifications are redemonstrated. DIAGNOSTIC CATEGORY 2--BENIGN FINDING: RECOMMENDATIONS: ROUTINE MAMMOGRAM AND CLINICAL EVALUATION IN 12 MONTHS. PLEASE NOTE: A NORMAL MAMMOGRAM DOES NOT EXCLUDE THE POSSIBILITY OF BREAST CANCER. A CLINICALLY SUSPICIOUS PALPABLE LUMP SHOULD BE BIOPSIED. Dictated by: Daniel Soto MD on 10/13/2024 at 11:08 Approved by: Daniel Soto MD on 10/13/2024 at 11:38 Dictated By: Daniel Soto M.D. Signed By: 10/13/24 1139 DD/ 1138 TD/TT: Health And Safety Consultant: CBC AUTO DIFF Reviewed date:04/10/2024 02:29:39 PM Interpretation: Performing Lab: Notes/Report: [facility] , White Blood Count 7.0 [...] Performing Lab: see note ML - [facility] LB TSH Reviewed date:04/10/2024 02:29:39 PM Interpretation: Performing Lab: Notes/Report: [facility] , Thyroid Stimulating Hormone 3.527 0.358-3.740 u IU/mL Performing Lab: see note ML - [facility] LB T4 Reviewed date:04/10/2024 02:29:39 PM Interpretation: Performing Lab: Notes/Report: [facility] , T4 Thyroxine 9.70 4.80-13.90 ug/dL Performing Lab: see note ML - [facility] LB PROF 14(COMP METB) Reviewed date:04/10/2024 02:29:39 PM Interpretation: Performing Lab: Notes/Report: [facility] , Sodium 145 136-145 mmol/L [...] 1.2 Performing Lab: see note ML - [facility] LIPID PROFILE Reviewed date:04/10/2024 02:29:39 PM Interpretation: Performing Lab: Notes/Report: [facility] , Triglycerides 86 <=150 mg/dL Cholesterol 201 <=200 mg/dL HDL Cholesterol 74 40-60 mg/dL > or =60 mg/dl - LOW CARDIOVASCULAR RISK <40 mg/dl - HIGH CARDIOVASCULAR RISK LDL Cholesterol Calculated 110.0 <100 mg/dl OPTIMAL 100-129 mg/dl NEAR OR ABOVE OPTIMAL 130-159 mg/dl BORDERLINE HIGH 160-189 mg/dl HIGH >190 mg/dl VERY HIGH VLDL CHOLESTEROL 17.2 Chol HDL Ratio 2.7 3.3 - 4.4 LOW RISK 4.4 - 7.1 AVERAGE RISK 7.1 - 11.0 MODERATE RISK >11.0 HIGH RISK Performing Lab: see note ML - [facility] IRON Reviewed date:04/10/2024 02:29:39 PM Interpretation: Performing Lab: Notes/Report: [facility] , Iron 72.0 50.0-170.0 ug/dL Performing Lab: see note ML - [facility] GLYCOHEMOGLOBIN A1C Reviewed date:04/10/2024 02:29:39 PM Interpretation: Performing Lab: Notes/Report: [facility] , Glycohemoglobin A1C 6.5 4.5-6.2 % ADA RECOMMENDED LIMIT 4.0 - 6.0 ADA THERAPEUTIC TARGET < 7.0 ACTION SUGGESTED > 7.0 Estimated Average Glucose 140 Performing Lab: see note ML - [facility] FREE T3 Reviewed date:04/10/2024 02:29:39 PM Interpretation: Performing Lab: Notes/Report: [facility] , Free T3 2.61 2.18-3.98 pg/mL Performing Lab: see note ML - [facility] LB Reason For Referral Diagnosis 1 Lymphedema (I89.0) Referral Organization [facility] Referring Provider First Name Chaitanya Referring Provider Last Name Catia Referring Provider Speciality Family Med icine Referred Provider [facility], Physical Therap y Referred Provider Specialty Physical Med icine and Rehabilitation Referral Priority Routine Medications Medication SIG (Take, Route, Frequency, Duration) Notes Start Date End Date Status Apixaban 5 MG 1 Orally bid 04/10/2024 No t-Taking Carvedilol 12.5 MG TAKE 1 TABLET TWICE A DAY WITH FOOD; Duration: 90 Active Ketoconazole 2 % 1 application Externally Once a day; Duration: 14 days 04/10/2024 Active Diabetic Shoe - Wear shoes daily . Dx: E11.9 10/22/2023 Active Ventolin HFA 108 (90 Base) MCG/ACT 2 puff as needed Inhalation every 4 hrs; Duration: 30 days 08/14/2024 Active CPAP - use as directed, keep current settings; Duration: 365 days 09/14/2023 Active Nystatin 797570 UNIT/GM small amount Externally Four times a day; Duration: 14 days 04/10/2024 Active metFORMIN HCl 1000 MG TAKE 1 TABLET TWIC E DAILY WITH MEALS; Duration: 90 Active Multi Complete - as directed Orally Active Diclofenac Sodium 75 MG 1 tablet as needed Orally Twice a day; Duration: 30 days 04/10/2024 Active Pioglitazone HCl 45 MG 1 tablet Orally Once a day; Duration: 30 days DC order for 30mg 2PO QD 04/11/2024 Not-Taking Immunizations Vaccine Route Administration Date Status Comme nts Flu, Flucelvax (55889) 2 yrs +, single-dose syringe (2757-2871) Unknown 04/09/2020 Administered Flu, Flucelvax (11211) 2 yrs +, single-dose syringe (9335-4097) Unknown 07/30/2021 Administered Tdap (Boostrix) Unknown 08/21/2020 [...] Problem Status W/U Status Risk Notes Problem Obstructive sleep ap ely syndrome (disorder) (91634409) Obstructive sleep apnea (adult) (pediatric) (G47.33) Active confirmed Problem Chronic obstructive pulmonary disease (49999013) Chronic obstructive pulmonary disease, unspecified (J44.9) Active confirmed Problem Type 2 diabetes mellitus with other specified complication (E11.69) Active confirmed Problem Diabetic complicatio n (83745272) Other specified diabetes mellitus with other specified complication (E13.69) Active confirmed Problem Hyperlipidemia (78850108) Hyperlipidemia , unspecified (E78.5) Active confirmed Problem Glaucoma (41648549) Unspecified glaucoma (H40.9) Active confirmed Problem Atrial fibrillation (45159038) Atrial fibrillation (I48.91) Active confirmed Problem Hypertension (34599885) Hyperten una (I10) Active confirmed Problem Lymphedema (82730905) Lymphedema (I89.0) Active confirmed Problem Pure hypercholesterolemia (864709248) Pure hypercholester olemia, unspecified (E78.00) Active confirmed Vital Signs Blood pressure diastolic 78 mm Hg 11/23/2024 Height 61 in 11/23/2024 Blood pressure systolic 138 mm Hg 11/23/2024 Weight 308.2 lbs 11/23/2024 BMI 58.23 kg/m2 11/23/2024 Procedures Procedure Date Ordered Date Performed Result Body Sit e ECG with Interpretation 04/10/2024 N/A CARDIO Echocardiogram 04/10/2024 N/A Encounters Encounter Location Date Provider Diagnosis [address] [address] 11/23/2024 Chaitanya Hoy Atrial fibrillation I48.91 ; Chronic obstructive pulmonary disease, unspecified J44.9 ; Type 2 diabetes mellitus with other specified complication E11.69 and Lymphedema I89.[address] [address] 04/10/2024 Chaitanya Hoy Pure hypercholesterolemia, unspecified E78.00 ; Type 2 diabetes mellitus with other specified complication E11.69 ; Hyperlipidemia, unspecified E78.5 ; Lymphedema I89.0 ; Obstructive sleep apnea (adult) (pediatric) G47.33 ; Hypertension I10 and Atrial fibrillation I48.91 [facility] [address] [place] [address] 04/10/2024 Chaitanya Hoy Pure hypercholesterolemia, unspecified E78.00 [address] [place] [address] 04/11/2024 Chaitanya Bardales Pure hypercholesterolemia, unspecified E78.00 [facility] [address] [place] [place] [place] [address] 04/11/2024 Chaitanya Bardales Pure hypercholesterolemia, unspecified E78.00 [facility] [address] [facility] [place] [address] 08/14/2024 Chaitanya Bardales [facility] [address] [place] [place] [place] [address] 10/15/2024 Chaitanya Bardales [facility] [address] [place] [place] [place] [address] 04/10/2024 Chaitanya Bardales [facility] [address] [place] [place] [place] [address] 04/10/2024 Chaitanya Bardales Assessments Encounter Date Diagnosis (ICD Code) Assessment Notes Treatment Notes Treatment Clinical Notes Section Notes 04/10/2024 Type 2 diabetes mellitus with other specified complication (ICD-10 - E11.69) suga are good 04/10/2024 Pure hypercholesterole meredith, unspecified (ICD-10 - E78.00) 04/11/2024 Pure hypercholesterole meredith, unspecified (ICD-10 - E78.00) 04/11/2024 Pure hypercholesterole meredith, unspecified (ICD-10 - E78.00) 04/10/2024 Pure hypercholesterole meredith, unspecified (ICD-10 - E78.00) needs labs 11/23/2024 Atrial fibrillation (ICD-10 - I48.91) in the past - respolved at this point - not medicated 11/23/2024 Chronic obstructive pulmonary disease, unspecified (ICD-10 - J44.9) stabel on inhalers 04/10/2024 Hyperlipidemia, unspecified (ICD-10 - E78.5) checkign on labs 04/10/2024 Lymphedema (ICD-10 - I89.0) nedsPT 11/23/2024 Type 2 diabetes mellitus with other specified complication (ICD-10 - E11.69) good control wihtjust metfrmin - takeing regualry na ddiet is good 11/23/2024 Lymphedema (ICD-10 - I89.0) 04/10/2024 Obstructive sleep apnea (adult) (pediatric) (ICD-10 - G47.33) mask 04/10/2024 Hypertension (ICD-10 - I10) good control 04/10/2024 Atrial fibrillation (ICD-10 - I48.91) Plan Of Treatment Pending Test Test Name Order Date CMP (COMPLETE METABOLIC PANEL) 3 CMP (COMPLETE METABOLIC PANEL) 4 CMP (COMPLETE METABOLIC PANEL) 4 HEMOGLOBIN A1C (GLYCO) 09/03/2023 HEMOGLOBIN A1C (GLYCO) 04/10/2024 HEMOGLOBIN A1C (GLYCO) 03/24/2023 HEMOGLOBIN A1C (GLYCO) 11/23/2024 IRON, TOTAL 11/23/2024 IRON, TOTAL 03/24/2023 IRON, TOTAL 09/03/2023 IRON, TOTAL 04/10/2024 LIPID PANEL (CHOL/TRIG/HDL/LDL) 11/24/19 25 LIPID PANEL (CHOL/TRIG/HDL/LDL) 04/10/20 24 LIPID PANEL (CHOL/TRIG/HDL/LDL) 03/24/20 23 LIPID PANEL (CHOL/TRIG/HDL/LDL) 09/03/19 24 CBC WITH DIFF 09/03/2023 CBC WITH DIFF 03/24/2023 CBC WITH DIFF 04/10/2024 VITAMIN D, 25 LEVEL (TOTAL) 03/24/2023 VITAMIN D, 25 LEVEL (TOTAL) 09/03/2023 VITAMIN D, 25 LEVEL (TOTAL) 11/23/2024 MAMM Mammograms CAD 09/03/2023 MAMM Mammograms CAD 12/11/2022 ECG with Interpretation 04/10/2024 CARDIO Echocardiogram 04/10/2024 Insulin Level 03/24/2023 Insulin Level 11/23/2024 High Sensitivity Troponin 04/10/2024 STOOL OCCULT BLOOD 04/10/2024 STOOL OCCULT BLOOD 03/24/2023 STOOL OCCULT BLOOD 11/23/2024 BNP 03/24/2023 BNP 04/10/2024 CBC AUTO DIFF 10/02/2022 GLYCOHEMOGLOBIN A1C 10/02/2022 LIPID PROFILE 10/02/2022 OCC BLD IMMUNOASSAY 12/03/2023 PROF 14(COMP METB) 10/02/2022 THYROID PROFILE WITH TSH 10/02/2022 THYROID PROFILE WITH TSH 12/03/2023 ECHOCARDIO M or 2D COMPLETE 03/24/2023 THYROID PANEL (T4/TSH/FREE T3) 5 THYROID PANEL (T4/TSH/FREE T3) 3 THYROID PANEL (T4/TSH/FREE T3) 4 THYROID PANEL (T4/TSH/FREE T3) 4 VC VENOUS REFLUX LYLA LMT 03/24/2023 MM screening mammo BI 12/03/2023 ECG 12 lead 04/10/2024 CMP (COMP MET [place]) w/eGFR CKD-EPI 2024 CBC WITH DIFF 11/23/2024 Next Appt Details Provider Name:Chaitanya Madrid Mathieusim, 10:00:00 AM, [address] [facility], [place], [address], Insurance Providers Payer Name Payer Address Payer Phone Subscriber Number Group Number Insured Name Patient Relationship to Insured Coverage Start Date Coverage End Date [employer] DUAL ADV PRIMARY MEDICARE [address] [place] [address] [id number] [facility] Self - patient is the insured MEDICAID [place] 2ND INS [address] OFFICE OF [place], [place] [id number] [facility] Self - patient is the insured Medical (General) History Medical History History ICD Code High cholesterol E78.00 Other specified diabetes mellitus with o ther specified complication E13.69 Advanced COPD J44.9 Surgical History Surgery Date(Month/Year) Heart Cath 12/06/2017 Gilbert Filter Placement Hysterectomy-Total Umbilical Herniorrhaphy
--- OUTSIDE RECORDS SUMMARY | 2025-02-13 09:58 | XMS_ITS | Encounter Summary ---
Author Organization [facility] Address [address] [place] [address] Care Team Providers Care Area Operations Manager Name Role Phone Unavailable Primary Care Provider Unavailabl e Encounter Details Date Type Department Care Team (Late st Contact Info) Description 11/16/2022 Abstract [facility] [address] [facility] [address] [place] [address] Orestes May, DPM FACFAS [address] [facility] [place] [address] Social History Tobacco Use Types Packs/Day Years [...]
--- OUTSIDE RECORDS SUMMARY | 2025-02-13 09:58 | XMS_ITS | Clinical Summary ---
Author Organization [facility] Address [address] [place] [address] Care Team Providers Care Linderman Machine Operator Name Role Phone Unavailable Primary Care Provider [...]
--- OUTSIDE RECORDS SUMMARY | 2025-02-13 09:58 | XMS_ITS | Clinical Summary ---
Author Organization [facility] Address [address] [place] [address] Phone Care Team Providers Care Brass Cleaner Name Role Phone Rishabh Luna DO Primary Care Provider [phone] Social History Tobacco Use Types Packs/Day Years Used Date Smoking Tobacco: Never Assessed Comments Unknown Sex and Gender Information Value Date Recorded Sex Assigned at Not on file Legal Sex Female 7:06 PM EST Gender Identity Not on file Sexual Orientation Not on file Plan of Treatment Not on file Care Teams Brass Cleaner Relationship Specialty Start Date End Date Rishabh Luna DO [address] [facility] [address] [facility] [place] [address] PCP - General 08/21/20
[2025-02-13 10:14] LABS: Hematocrit 40.8 % (36.0-48.0); Hemoglobin 13.8 g/dL (12.0-16.0); Immature Granulocytes Abs Auto 0.08 10^3/uL (0.00-0.03); Immature Granulocytes Pct Auto 1.1 % (0.0-0.5); Lymphocytes Absolute Auto 2.0 10^3/uL (1.2-3.8); Mean Corpuscular HGB Conc 33.8 g/dL (29.9-35.2); Mean Corpuscular Hemoglobin 31.0 pg (26.7-34.0); Mean Corpuscular Volume 91.7 fL (81.0-99.0); Platelet Count 202 10^3/uL (150-450); Red Blood Count 4.45 10^6/uL (4.20-5.40); White Blood Count 7.1 10^3/uL (4.0-11.0)
[2025-02-13 10:49] LABS: Iron 64.0 ug/dL (50.0-170.0)
[2025-02-13 11:00] LABS: Alanine Aminotransferase 15 U/L (14-59); Albumin Globulin Ratio 1.0; Albumin Level 3.7 g/dL (3.4-5.0); Alkaline Phosphatase 120 U/L (46-116); Anion Gap 14.8; Aspartate Amino Transferase 23 U/L (15-37); Blood Urea Nitrogen 16.0 mg/dL (7.0-18.0); Calcium 9.4 mg/dL (8.5-10.1); Carbon Dioxide 25.6 mmol/L (21.0-32.0); Chloride 106 mmol/L (98-107); Cholesterol 237 mg/dL (<=200); Estimated GFR (African America >60 (>=60 mL/min/1.73m^2); Estimated GFR (Non-African Ame 58 (>=60 mL/min/1.73m^2); Free T3 2.43 pg/mL (2.18-3.98); Globulin 3.8 g/dL; Glucose 188 mg/dL (74-106); HDL Cholesterol 63 mg/dL (40-60); Potassium 4.4 mmol/L (3.5-5.1); Sodium 142 mmol/L (136-145); Thyroid Stimulating Hormone 3.129 uIU/mL (0.358-3.740); Total Protein 7.5 g/dL (6.4-8.2); Triglycerides 152 mg/dL (<=150); VLDL CHOLESTEROL 30.4 mg/dL
== END 2025-02-13 09:51 | disposition home or self-care (01) ==
LOC: LAB 09:50
PROVIDERS: PCP Family Medicine; Visit Provider Family Medicine
DX: E78.5 Hyperlipidemia, unspecified (principal); I48.91 Unspecified atrial fibrillation; J44.9 Chronic obstructive pulmonary disease, unspecified; E11.69 Type 2 diabetes mellitus with other specified complication; I89.0 Lymphedema, not elsewhere classified; Z12.12 Encounter for screening for malignant neoplasm of rectum; D64.9 Anemia, unspecified; E55.9 Vitamin D deficiency, unspecified
CPT/HCPCS: 36415; 80053; 80061; 82306; 83036; 83525; 83540; 84436; 84443; 84481; 85025; G0328